=== PATIENT | female | born 1960 | race Caucasian/White ===

== ENCOUNTER → 2020-04-09 11:56 | Outpatient (REF) | payer MEDICAID, SELFPAY | LOC: HO.SL 11:56 | PROVIDERS: Visit Provider Family Medicine | DX: G47.33 Obstructive sleep apnea (adult) (pediatric) (principal) | CPT/HCPCS: 95806 ==

== ENCOUNTER 2020-10-23 10:13 | Outpatient (REF) | payer MEDICAID, SELFPAY ==
[2020-10-23 10:27] LABS: COVID-19 Test Positive (Negative)
== END 2020-10-23 10:14 | disposition home or self-care (01) ==
LOC: HO.LAB 10:13
PROVIDERS: Visit Provider Internal Medicine
DX: Z20.822 Contact with and (suspected) exposure to COVID-19 (principal)
CPT/HCPCS: 36415; 87635; C9803

== ENCOUNTER 2021-06-23 15:45 | Emergency (ER) | payer MEDICAID, SELFPAY ==
--- NOTE | ~2021-06-23 | XR_ITS ---
EXAMINATION: CHEST 2 VIEWS CLINICAL INFORMATION: pt c sob and sore throat . COMPARISON: 12/18/2010. TECHNIQUE: PA and lateral views of the chest obtained. FINDINGS: The lungs are well expanded. Minimal increased basilar markings more likely due to atelectasis or scarring similar to the prior 2010 study. No superimposed focal infiltrate, effusion, edema, or pneumothorax. Cardiac and mediastinal silhouettes are within normal limits for size. Dual-lead pacemaker seen with lead tips overlying the expected right atrium and right ventricle. No acute bony abnormality seen XR/XR chest 2V IMPRESSION: Dual-lead pacemaker. Basilar markings more likely due to atelectasis.
[2021-06-23 17:04] VITALS: BP 137/77; PULSE 95; RESP 22; TEMP 36.9; O2SAT 95; BMI 37.2
--- NOTE | 2021-06-23 17:07 | ECG_ITS ---
Test Reason : Sore throat/shortness of breath/chest pain Blood Pressure : / mmHG Vent. Rate : 086 BPM Atrial Rate : 086 BPM P-R Int : 160 ms QRS Dur : 078 ms QT Int : 418 ms P-R-T Axes : 066 054 051 degrees QTc Int : 500 ms Artifact in tracing Normal sinus rhythm Right atrial enlargement Minimal voltage criteria for LVH, may be normal variant ( Sokolow-Allen ) Nonspecific ST abnormality Prolonged QT Abnormal ECG When compared with ECG of 29-AUG-2015 12:26, No significant change was found Referred By: Thais Terry Electronically Signed By:KRISTA ROCK
--- NOTE | 2021-06-23 17:07 | ED_ITS ---
HPI - URI/Sore Throat General Chief Complaint: General Medical Stated Complaint: sob,sore throat Time Seen by Provider: 06/23/21 17:04 Related Data Previous Rx's Medication Instructions Recorded albuterol sulfate 90 mcg/actuation 2 puff INHALATION Q6H PRN #8.5 g 06/23/21 aerosol inhaler prednisone 20 mg tablet 40 mg PO DAILY #10 tab 06/23/21 Allergies Allergy/AdvReac Type Severity Reaction Status Date / Time No Known Allergies Allergy Unverified 03/21/20 16:56 [No Known Allergies*] [facility] Past Medical History Medical History (Updated 06/24/21 @ 00:02 by Background Daemon) Anxiety Dementia HTN (hypertension) Pacemaker Social History Social History Alcohol intake: never Patient Tobacco Use Status: Never used Tobacco Use of substances other than those prescribed or required for medical reasons: No Advance Directives: No Advance Directives Information Provided: No Patient : No Physical Exam Vital Signs: Vital Signs: Last Vital Signs Temp 98.5 F 06/23/21 17:04 Pulse 97 06/23/21 21:00 Resp 20 06/23/21 21:00 BP 137/77 06/23/21 17:04 Pulse Ox 94 06/23/21 19:22 BMI result Body Mass Index 37.2 Course Course Course Narrative: 17pm - 61-year-old female [place]-speaking female presenting to the ED with her daughter at bedside with complaints of a sore throat, shortness of breath and chest discomfort with associated cough that started this morning. Denies any other symptoms related to this. Reports that she is vaccinated to COVID. On exam patient is alert and oriented x3. Not in any acute distress. Vital signs are stable within normal limits. No focal neuro deficits are noted. Therefore at this time COVID swab and rapid strep was obtained. Labs and x-ray along with EKG ordered. Patient will go back to the waiting room for further evaluation treatment in the main ED. MDM - URI/Sore Throat Lab Data Result diagrams: 06/23/21 19:31 06/23/21 19:31 Labs: Lab Results 06/23/21 06/23/21 06/23/21 Range/Units 17:07 17:07 19:31 WBC 12.6 H (4.8-10.8) X10*3/uL RBC 4.74 (4.20-5.50) X10*6/uL Hgb 13.5 (12.0-16.0) g/dl Hct 39.8 (37.0-47.0) % MCV 84.0 (80.0-98.0) fL MCH 28.5 (27.0-33.0) pg MCHC 33.9 (31.0-35.0) g/dl RDW 12.2 (11.0-16.0) % Plt Count 259 (160-400) X10*3/uL MPV 10.5 (9.4-12.3) fL Immature Gran % (Auto) 0.3 (0.0-0.4) % Neut % (Auto) 82.4 H (45-73) % Lymph % (Auto) 9.7 L (20-40) % [place] % (Auto) 5.8 (2-11) % Eos % (Auto) 1.6 (0-4) % Baso % (Auto) 0.2 (0-2) % Lymph # (Auto) 1.2 (1.2-4.9) X10*3/uL [place] # (Auto) 0.7 (0.1-1.2) X10*3/uL Eos # (Auto) 0.2 (0.0-0.4) X10*3/uL Baso # (Auto) 0.0 (0.0-0.2) X10*3/uL Abs Immat Gran (auto) 0.04 H (0.00-0.03) X10*3/uL Absolute Neuts (auto) 10.4 H (2.0-8.3) x10*3/uL Absolute Nucleated RBC 0.000 (0.0-0.012) X10*3/uL Nucleated RBC % (auto) 0.0 (0.0-0.2) /100WBC PT (9.9-13.0) SEC INR (0.9-1.1) Sodium (135-145) mmol/L Potassium (3.3-5.1) mmol/L Chloride (96-108) mmol/L Carbon Dioxide (22-29) mmol/L Anion Gap (12-20) BUN (9-16) mg/dL Creatinine (0.5-1.4) mg/dL Estim Creat Clear Calc Estimated GFR Random Glucose (60-115) mg/dL Calcium (8.4-10.2) mg/dL Magnesium (1.6-2.6) mg/dL Total Bilirubin (0.0-1.0) mg/dL AST (5-31) U/L ALT (0-31) U/L Alkaline Phosphatase (39-117) U/L Troponin I High Sens (<3.5-17.0) ng/L B-Natriuretic Peptide (<100) pg/mL Total Protein (6.5-8.0) g/dL Albumin (3.5-5.0) g/dL COVID-19 (SUNIL) Negative (Negative) COVID-19 Clin Com See Note S. pyogenes GrpA ENDY Negative (Negative) 06/23/21 06/23/21 06/23/21 Range/Units 19:31 19:31 19:31 WBC (4.8-10.8) X10*3/uL RBC (4.20-5.50) X10*6/uL Hgb (12.0-16.0) g/dl Hct (37.0-47.0) % MCV (80.0-98.0) fL MCH (27.0-33.0) pg MCHC (31.0-35.0) g/dl RDW (11.0-16.0) % Plt Count (160-400) X10*3/uL MPV (9.4-12.3) fL Immature Gran % (Auto) (0.0-0.4) % Neut % (Auto) (45-73) % Lymph % (Auto) (20-40) % [place] % (Auto) (2-11) % Eos % (Auto) (0-4) % Baso % (Auto) (0-2) % Lymph # (Auto) (1.2-4.9) X10*3/uL [place] # (Auto) (0.1-1.2) X10*3/uL Eos # (Auto) (0.0-0.4) X10*3/uL Baso # (Auto) (0.0-0.2) X10*3/uL Abs Immat Gran (auto) (0.00-0.03) X10*3/uL Absolute Neuts (auto) (2.0-8.3) x10*3/uL Absolute Nucleated RBC (0.0-0.012) X10*3/uL Nucleated RBC % (auto) (0.0-0.2) /100WBC PT 12.8 (9.9-13.0) SEC INR 1.1 (0.9-1.1) Sodium 140 (135-145) mmol/L Potassium 4.0 (3.3-5.1) mmol/L Chloride 103 (96-108) mmol/L Carbon Dioxide 29 (22-29) mmol/L Anion Gap 12 (12-20) BUN 9 (9-16) mg/dL Creatinine 0.93 (0.5-1.4) mg/dL Estim Creat Clear Calc 67.9 Estimated GFR > 60 Random Glucose 141 H (60-115) mg/dL Calcium 9.6 (8.4-10.2) mg/dL Magnesium 1.8 (1.6-2.6) mg/dL Total Bilirubin 0.5 (0.0-1.0) mg/dL AST 17 (5-31) U/L ALT 26 (0-31) U/L Alkaline Phosphatase 120 H (39-117) U/L Troponin I High Sens 4.6 (<3.5-17.0) ng/L B-Natriuretic Peptide 28 (<100) pg/mL Total Protein 7.6 (6.5-8.0) g/dL Albumin 4.4 (3.5-5.0) g/dL COVID-19 (SUNIL) (Negative) COVID-19 Clin Com S. pyogenes GrpA ENDY (Negative) Discharge Plan Discharge Clinical Impression: Chest pain, Acute upper respiratory infection Patient Disposition: Home, Self-Care Instructions: Upper Respiratory Infection (ED), Viral Syndrome (ED), Chest Wall Pain (ED) Additional Instructions: Return if worse. Prednisone for inflammation. Prescriptions: New prednisone 20 mg tablet 40 mg PO DAILY Qty: 10 RF: 0 albuterol sulfate 90 mcg/actuation HFA aerosol inhaler 2 puff inhalation Q6H PRN (Reason: shortness of breath or wheezing) Qty: 8.5 RF: 0 Interventions: ED Discharge Assessment Last Done: 06/23/21 21:42 Discharge Date/Time: 06/23/21 21:42
[2021-06-23 17:30] LABS: Strep A Nucleic Acid Negative (Negative)
[2021-06-23 17:32] LABS: COVID-19 Test Negative (Negative)
[2021-06-23 19:22] VITALS: PULSE 97; O2SAT 94
--- NOTE | 2021-06-23 19:28 | ED_ITS ---
HPI - General Adult General Chief complaint: General Medical Stated complaint: sob,sore throat Time Seen by Provider: 06/23/21 17:04 Source: patient and family History of Present Illness HPI narrative: Patient with 2 complaints. 1. Chest pain which started earlier today when she woke up. She was lying down when it happened. It is a an anterior chest pressure that is worse with inspiration and coughing. She has been coughing for the last several days and bringing up green phlegm. No history of pneumonias in the past. No history of heart attack but she does have a dual lead pacemaker placed multiple years ago prior to this. She denies recent cardiac testing such as stress test. She has never have a catheterization. She denies ever having chest pain like this before. She feels short of breath with chest pain. She currently rates it a 9/10 2. Sore throat for the past 2 days. Worse with coughing and swallowing. Related Data Previous Rx's Medication Instructions Recorded albuterol sulfate 90 mcg/actuation 2 puff INHALATION Q6H PRN #8.5 g 06/23/21 aerosol inhaler prednisone 20 mg tablet 40 mg PO DAILY #10 tab 06/23/21 Allergies Allergy/AdvReac Type Severity Reaction Status Date / Time No Known Allergies Allergy Unverified 03/21/20 16:56 [No Known Allergies*] Review of Systems Constitutional: Constitutional: Denies body ache(s), Denies fatigue, Denies fever(s) and Denies headache(s) ENT: Denies headache(s) Cardiovascular: Comments: Chest pain as described Respiratory: Comments: Dyspnea and cough with phlegm is described Gastrointestinal: Comments: No nausea vomiting diarrhea or abdominal pain Integumentary/Breasts: Comments: No rash Neurologic: Denies headache(s) Psychiatric: Comments: Anxiety Endocrine: Endocrine: Denies fatigue PMFSH Past Medical History Medical History (Updated 06/23/21 @ 21:16 by Royce Tejeda MD) Anxiety Dementia HTN (hypertension) Pacemaker Social History Social History Alcohol intake: never Patient Tobacco Use Status: Never used Tobacco Use of substances other than those prescribed or required for medical reasons: No Advance Directives: No Advance Directives Information Provided: No Patient : No Physical Exam Vital Signs: Vital Signs: Last Vital Signs Temp 98.5 F 06/23/21 17:04 Pulse 97 06/23/21 21:00 Resp 20 12/20/21 21:00 BP 137/77 06/23/21 17:04 Pulse Ox 94 06/23/21 19:22 BMI result Body Mass Index 37.2 Const: Other: Awake and alert. Appears anxious HENMT: Other: Throat without erythema, exudate, or swelling Chest: Other: Chest wall nontender to palpation Resp: Other: Diminished but clear and equal bilaterally Cardio: Other: Regular rate and rhythm without murmurs rubs or gallops GI: Other: Soft nontender nondistended. Normal bowel sounds Skin: Other: No rash. Warm pink and dry without diaphoresis Neuro: Other: Nonfocal Course Course Course Narrative: Chest pain Myocardial infarction Acute coronary syndrome Musculoskeletal pain Pneumonia Bronchitis Sore throat Pharyngitis Clinically does not appear to be strep throat. Await EKG 7:50 p.m.. Patient appeared to have approximately a 12nd run of wide complex tachycardia on the monitor. But also coincided with a period of tremulousness. I do not think this represents ventricular tachycardia. 8:11 p.m.. EKG shows normal sinus rhythm without ischemic changes. Lab work including troponin is negative. Given the length and duration of chest pain, it is unlikely this represents acute coronary syndrome or ischemic pathology. It is worse with inspiration and coughing. Chest x-ray shows no obvious infiltrates. Repeat exam confirms diminished breath sounds bilaterally. Will treat with albuterol and Solu-Medrol and re-evaluate. 9:15 p.m.. Patient is feeling better at this time. Stable for discharge home Medical Decision Making Lab Data Result diagrams: 06/23/21 19:31 06/23/21 19:31 Labs: Lab Results 06/23/21 06/23/21 06/23/21 Range/Units 17:07 17:07 19:31 WBC 12.6 H (4.8-10.8) X10*3/uL RBC 4.74 (4.20-5.50) X10*6/uL Hgb 13.5 (12.0-16.0) g/dl Hct 39.8 (37.0-47.0) % MCV 84.0 (80.0-98.0) fL MCH 28.5 (27.0-33.0) pg MCHC 33.9 (31.0-35.0) g/dl RDW 12.2 (11.0-16.0) % Plt Count 259 (160-400) X10*3/uL MPV 10.5 (9.4-12.3) fL Immature Gran % (Auto) 0.3 (0.0-0.4) % Neut % (Auto) 82.4 H (45-73) % Lymph % (Auto) 9.7 L (20-40) % [place] % (Auto) 5.8 (2-11) % Eos % (Auto) 1.6 (0-4) % Baso % (Auto) 0.2 (0-2) % Lymph # (Auto) 1.2 (1.2-4.9) X10*3/uL [place] # (Auto) 0.7 (0.1-1.2) X10*3/uL Eos # (Auto) 0.2 (0.0-0.4) X10*3/uL Baso # (Auto) 0.0 (0.0-0.2) X10*3/uL Abs Immat Gran (auto) 0.04 H (0.00-0.03) X10*3/uL Absolute Neuts (auto) 10.4 H (2.0-8.3) x10*3/uL Absolute Nucleated RBC 0.000 (0.0-0.012) X10*3/uL Nucleated RBC % (auto) 0.0 (0.0-0.2) /100WBC PT (9.9-13.0) SEC INR (0.9-1.1) Sodium (135-145) mmol/L Potassium (3.3-5.1) mmol/L Chloride (96-108) mmol/L Carbon Dioxide (22-29) mmol/L Anion Gap (12-20) BUN (9-16) mg/dL Creatinine (0.5-1.4) mg/dL Estim Creat Clear Calc Estimated GFR Random Glucose (60-115) mg/dL Calcium (8.4-10.2) mg/dL Magnesium (1.6-2.6) mg/dL Total Bilirubin (0.0-1.0) mg/dL AST (5-31) U/L ALT (0-31) U/L Alkaline Phosphatase (39-117) U/L Troponin I High Sens (<3.5-17.0) ng/L B-Natriuretic Peptide (<100) pg/mL Total Protein (6.5-8.0) g/dL Albumin (3.5-5.0) g/dL COVID-19 (SUNIL) Negative (Negative) COVID-19 Clin Com See Note S. pyogenes GrpA ENDY Negative (Negative) 06/23/21 06/23/21 06/23/21 Range/Units 19:31 19:31 19:31 WBC (4.8-10.8) X10*3/uL RBC (4.20-5.50) X10*6/uL Hgb (12.0-16.0) g/dl Hct (37.0-47.0) % MCV (80.0-98.0) fL MCH (27.0-33.0) pg MCHC (31.0-35.0) g/dl RDW (11.0-16.0) % Plt Count (160-400) X10*3/uL MPV (9.4-12.3) fL Immature Gran % (Auto) (0.0-0.4) % Neut % (Auto) (45-73) % Lymph % (Auto) (20-40) % [place] % (Auto) (2-11) % Eos % (Auto) (0-4) % Baso % (Auto) (0-2) % Lymph # (Auto) (1.2-4.9) X10*3/uL [place] # (Auto) (0.1-1.2) X10*3/uL Eos # (Auto) (0.0-0.4) X10*3/uL Baso # (Auto) (0.0-0.2) X10*3/uL Abs Immat Gran (auto) (0.00-0.03) X10*3/uL Absolute Neuts (auto) (2.0-8.3) x10*3/uL Absolute Nucleated RBC (0.0-0.012) X10*3/uL Nucleated RBC % (auto) (0.0-0.2) /100WBC PT 12.8 (9.9-13.0) SEC INR 1.1 (0.9-1.1) Sodium 140 (135-145) mmol/L Potassium 4.0 (3.3-5.1) mmol/L Chloride 103 (96-108) mmol/L Carbon Dioxide 29 (22-29) mmol/L Anion Gap 12 (12-20) BUN 9 (9-16) mg/dL Creatinine 0.93 (0.5-1.4) mg/dL Estim Creat Clear Calc 67.9 Estimated GFR > 60 Random Glucose 141 H (60-115) mg/dL Calcium 9.6 (8.4-10.2) mg/dL Magnesium 1.8 (1.6-2.6) mg/dL Total Bilirubin 0.5 (0.0-1.0) mg/dL AST 17 (5-31) U/L ALT 26 (0-31) U/L Alkaline Phosphatase 120 H (39-117) U/L Troponin I High Sens 4.6 (<3.5-17.0) ng/L B-Natriuretic Peptide 28 (<100) pg/mL Total Protein 7.6 (6.5-8.0) g/dL Albumin 4.4 (3.5-5.0) g/dL COVID-19 (SUNIL) (Negative) COVID-19 Clin Com S. pyogenes GrpA ENDY (Negative) Discharge Plan Discharge Clinical Impression: Acute upper respiratory infection Chest pain Qualifiers: Chest pain type: unspecified Qualified Code(s): R07.9 - Chest pain, unspecified Patient Disposition: Home, Self-Care Instructions: Upper Respiratory Infection (ED), Viral Syndrome (ED), Chest Wall Pain (ED) Additional Instructions: Return if worse. Prednisone for inflammation. Prescriptions: New prednisone 20 mg tablet 40 mg PO DAILY Qty: 10 RF: 0 albuterol sulfate 90 mcg/actuation HFA aerosol inhaler 2 puff inhalation Q6H PRN (Reason: shortness of breath or wheezing) Qty: 8.5 RF: 0
[2021-06-23 19:35] LABS: MANUAL DIFF FLAG NO
[2021-06-23 19:36] LABS: Basophils Percent Auto 0.2 % (0-2); Eosinophils Absolute Auto 0.2 X10*3/uL (0.0-0.4); Eosinophils Percent Auto 1.6 % (0-4); Hematocrit 39.8 % (37.0-47.0); Hemoglobin 13.5 g/dl (12.0-16.0); Imm Gran Abs Auto 0.04 X10*3/uL (0.00-0.03); Imm Gran Pct Auto 0.3 % (0.0-0.4); Lymphocytes Absolute Auto 1.2 X10*3/uL (1.2-4.9); Lymphocytes Percent Auto 9.7 % (20-40); Mean Corpuscular HGB Conc 33.9 g/dl (31.0-35.0); Mean Corpuscular Hemoglobin 28.5 pg (27.0-33.0); Mean Platelet Volume 10.5 fL (9.4-12.3); Monocytes Absolute Auto 0.7 X10*3/uL (0.1-1.2); Monocytes Percent Auto 5.8 % (2-11); Neutrophils Absolute Auto 10.4 x10*3/uL (2.0-8.3); Neutrophils Percent Auto 82.4 % (45-73); Platelet Count 259 X10*3/uL (160-400); Red Blood Count 4.74 X10*6/uL (4.20-5.50); Red Cell Distribution Width 12.2 % (11.0-16.0); White Blood Count 12.6 X10*3/uL (4.8-10.8)
[2021-06-23 19:42] LABS: INTERNATIONAL NORM RATIO 1.1 (0.9-1.1); Prothrombin Time 12.8 SEC (9.9-13.0)
[2021-06-23 19:54] LABS: Alanine Aminotransferase 26 U/L (0-31); Albumin Level 4.4 g/dL (3.5-5.0); Alkaline Phosphatase 120 U/L (39-117); Anion Gap 12 (12-20); Aspartate Amino Transferase 17 U/L (5-31); Bilirubin Total 0.5 mg/dL (0.0-1.0); Blood Urea Nitrogen 9 mg/dL (9-16); Calcium 9.6 mg/dL (8.4-10.2); Carbon Dioxide 29 mmol/L (22-29); Chloride 103 mmol/L (96-108); Creatinine Clr Calc Pharmacy 67.9; Estimated Glomerular Filt Rate > 60; Glucose Random 141 mg/dL (60-115); Magnesium 1.8 mg/dL (1.6-2.6); Sodium 140 mmol/L (135-145); Total Protein 7.6 g/dL (6.5-8.0)
[2021-06-23 19:58] LABS: B Type Natriuretic Peptide 28 pg/mL (<100); Troponin-I High Sensitivity 4.6 ng/L (<3.5-17.0)
[2021-06-23] MEDS: LORazepam 2 MG/ML VIAL 0.5 MG IVPUSH (20:06)
[2021-06-23] MEDS: Albuterol Sulfate (0.083%) 2.5 MG/3 ML VIAL.NEB INHALE (20:58)
[2021-06-23 21:00] VITALS: PULSE 97; RESP 20; O2SAT 93
[2021-06-23] MEDS: methylPREDNISolone Sod Succ 125 MG/2 ML VIAL IVPUSH (21:08)
== END 2021-06-23 21:42 | disposition home or self-care (01) ==
PROVIDERS: Physician Assistant Medical; Emergency Provider Emergency Medicine; PCP Family Medicine
DX: J06.9 Acute upper respiratory infection, unspecified (principal); R07.9 Chest pain, unspecified; Z20.822 Contact with and (suspected) exposure to COVID-19; R06.02 Shortness of breath; I10 Essential (primary) hypertension; F41.9 Anxiety disorder, unspecified; Z95.0 Presence of cardiac pacemaker
CPT/HCPCS: 36415; 71046; 80053; 83735; 83880; 84484; 85025; 85610; 87635; 87651; 93005; 94640; 96374; 96375; 99284; J2060; J2930

== ENCOUNTER → 2022-06-08 21:21 | Outpatient (REF) | payer MEDICAID, SELFPAY | LOC: HO.SL 21:21 | PROVIDERS: Visit Provider Family Medicine | DX: G47.33 Obstructive sleep apnea (adult) (pediatric) (principal) | CPT/HCPCS: 95810 ==

== ENCOUNTER 2022-09-30 09:31 | Outpatient (REF) | payer MEDICAID, SELFPAY ==
--- NOTE | ~2022-09-30 | MM_ITS ---
EXAMINATION: MM SCREENING DIGITAL BREAST TOMOSYNTHESIS, BILATERAL CLINICAL INFORMATION: Screening. Asymptomatic. The lifetime risk of breast cancer based on the Tyrer-Cuzick Model is 4%. COMPARISON: Mammography: 08/18/2018, 06/08/2017, 06/01/2016 TECHNIQUE: Digital breast tomosynthesis is performed in both the craniocaudal and mediolateral oblique views along with computer-aided detection (CAD). Synthesized 2D images are generated from the tomosynthesis. FINDINGS: There are scattered areas of fibroglandular density (ACR BI-RADS breast composition Category b). There are no significant masses, abnormal calcifications, or other abnormalities. Parenchymal pattern is similar to prior studies. There is no developing density or architectural abnormality. Pacemaker generator is again noted partially overlying the upper left axilla on MLO view. The axilla and skin contours are otherwise unremarkable. No significant changes. MM/MM tomosynthesis screening BI IMPRESSION: No mammographic evidence of malignancy. ASSESSMENT: BI-RADS 1: Negative RECOMMENDATION: Routine annual mammography screening. This patient's information was entered into a reminder system with a target due date for their next mammogram.
== END 2022-09-30 09:32 | disposition home or self-care (01) ==
LOC: HO.MAMMO 09:31
PROVIDERS: Visit Provider Family Medicine
DX: Z12.31 Encounter for screening mammogram for malignant neoplasm of breast (principal)
CPT/HCPCS: 77063; 77067

== ENCOUNTER 2023-10-06 09:09 | Outpatient (REF) | payer MEDICARE, SELFPAY ==
--- NOTE | ~2023-10-06 | MM_ITS ---
EXAMINATION: MM SCREENING DIGITAL BREAST TOMOSYNTHESIS, BILATERAL CLINICAL INFORMATION: Screening. Asymptomatic. COMPARISON: Mammography: This study is compared with prior exams dating back to 2017. TECHNIQUE: Digital breast tomosynthesis is performed in both the craniocaudal and mediolateral oblique views along with computer-aided detection (CAD). Synthesized 2D images are generated from the tomosynthesis. FINDINGS: There are scattered areas of fibroglandular density (ACR BI-RADS breast composition Category b). There are no significant masses, abnormal calcifications, or other abnormalities. There is a pacemaker battery in the superior aspect of the left breast. MM/MM tomosynthesis screening BI IMPRESSION: No mammographic evidence of malignancy. ASSESSMENT: BI-RADS BI-RADS 1 - Negative RECOMMENDATION: Routine annual mammography screening. 1 year F/U This examination should not preclude the clinical evaluation of a suspicious palpable abnormality. This patient's information was entered into a reminder system with a target due date for their next mammogram.
== END 2023-10-06 09:10 | disposition home or self-care (01) ==
LOC: HO.MAMMO 09:09
PROVIDERS: PCP Family Medicine; Visit Provider Family Medicine
DX: Z12.31 Encounter for screening mammogram for malignant neoplasm of breast (principal)
CPT/HCPCS: 77063; 77067

== ENCOUNTER → 2023-10-06 09:30 | Outpatient (BNV) | payer MEDICARE, SELFPAY | PROVIDERS: PCP Family Medicine; Visit Provider Radiology Diagnostic Radiology | DX: Z12.31 Encounter for screening mammogram for malignant neoplasm of breast (principal) | CPT/HCPCS: 77063; 77067 ==

== ENCOUNTER 2023-10-26 10:03 | Outpatient (REF) | payer MEDICARE, SELFPAY ==
[2023-10-26 11:53] LABS: Prothrombin Time 11.7 SEC (11.1-13.3)
[2023-10-26 11:56] LABS: Partial Thromboplastin Time 30.9 SEC (26.0-36.8)
[2023-10-26 12:07] LABS: Estimated Average Glucose 131 mg/dL; Hemoglobin A1c % 6.2 % (<6.0)
[2023-10-26 12:27] LABS: Alanine Aminotransferase 21 U/L (0-31); Alkaline Phosphatase 95 U/L (39-117); Anion Gap 10 (12-20); Aspartate Amino Transferase 16 U/L (5-31); Bilirubin Direct 0.1 mg/dL (0.0-0.5); Bilirubin Total 0.3 mg/dL (0.0-1.0); Blood Urea Nitrogen 12 mg/dL (9-16); Calcium 9.1 mg/dL (8.4-10.2); Carbon Dioxide 29 mmol/L (22-29); Chloride 107 mmol/L (96-108); Cholesterol 136 mg/dL (<200); Estimated Glomerular Filt Rate 58; Glucose Random 120 mg/dL (60-115); HDL Cholesterol 36 mg/dL (>40); LDL Cholesterol Calculated 54 mg/dL (<100); Potassium 3.8 mmol/L (3.3-5.1); Sodium 142 mmol/L (135-145); Total Protein 6.9 g/dL (6.5-8.0); Triglycerides 233 mg/dL (<150)
[2023-10-26 12:48] LABS: Free T4 (Free Thyroxine) 0.79 ng/dL (0.71-1.85); Thyroid Stimulating Hormone 1.37 uIU/mL (0.32-4.0); Vitamin D 25-OH Total 42.8 ng/mL (>30)
== END 2023-10-26 10:04 | disposition home or self-care (01) ==
LOC: HO.HHCL 10:03
PROVIDERS: Visit Provider Family Medicine
DX: E11.22 Type 2 diabetes mellitus with diabetic chronic kidney disease (principal); N18.30 Chronic kidney disease, stage 3 unspecified; R23.3 Spontaneous ecchymoses; R10.13 Epigastric pain
CPT/HCPCS: 80048; 80061; 80076; 82306; 83036; 84439; 84443; 85610; 85730

== ENCOUNTER 2023-11-09 08:38 | Outpatient (REF) | payer MEDICARE, SELFPAY ==
--- NOTE | ~2023-11-09 | MM_ITS ---
EXAMINATION: BONE DENSITOMETRY CLINICAL INDICATION: Menopause. COMPARISON: This is the patient's baseline examination. TECHNIQUE: Using a [employer] Cloud Camera DXA System (software version: 13.1) manufactured by [employer], dual-energy x-ray absorptiometry was performed of the lumbar spine and left hip. The images are of good technical quality. Summary results are attached. FINDINGS: LEFT FEMUR, NECK: BMD 1.093 g/cm2, Z-score 1.2, T-score 0.4, normal. LEFT FEMUR, TOTAL: BMD 1.171 g/cm2, Z-score 1.8, T-score 1.3, normal. AP SPINE L1-L4: BMD 1.364 g/cm2, Z-score 2.1, T-score 1.5, normal. IDENTIFIED RISK FACTORS: Early menopause, dementia, glucocorticoids (chronic), secondary osteoporosis. HISTORY OF FRACTURE: None listed. MEDICATIONS: None listed. MM/XR DEXA axial skeleton IMPRESSION: 1. DIAGNOSIS: Normal bone density based on the lowest T-score value of 0.4 in the femoral neck applying World Health Organization criteria. 2. 10-YEAR FRACTURE RISK PREDICTION, FRAX: According to the guidelines, FRAX calculation should only be performed on patients in the osteopenia bone density category. Therefore, FRAX was not performed on this patient. 3. Treatment Recommendations: NOF guidelines recommend consideration for treatment in postmenopausal women and men age 50 and older presenting with the following: -A hip or vertebral (clinical or morphometric) fracture. -T-score less than or equal to -2.5 at the femoral neck or spine after appropriate evaluation to exclude secondary causes. -Low bone mass at the hip or spine and a 10-year fracture probability by FRAX of greater than or equal to 3% for hip fracture or greater than or equal to 20% for major osteoporotic fracture based on the [place] adapted WHO algorithm. 4. Other Recommendations: All treatment decisions require clinical judgment and consideration of individual patient factors, including patient preferences, comorbidities, previous drug use, risk factors not captured in the FRAX model (e.g. frailty, falls, vitamin D deficiency, increased bone turnover, interval significant decline in bone density) and possible under or overestimation of fracture risk by FRAX. FUTURE SCAN RECOMMENDATION: People with diagnosed cases of osteoporosis or at high risk for fracture should have regular bone mineral density tests. For patients eligible for Medicare, routine testing is allowed once every 2 years. The testing frequency can be increased to one year for patients who have rapidly progressing disease, those who are receiving or discontinuing medical therapy to restore bone mass, or have additional risk factors.
== END 2023-11-09 08:39 | disposition home or self-care (01) ==
LOC: HO.MAMMO 08:38
PROVIDERS: PCP Family Medicine; Visit Provider Family Medicine
DX: Z13.820 Encounter for screening for osteoporosis (principal); Z78.0 Asymptomatic menopausal state; Z91.89 Other specified personal risk factors, not elsewhere classified
CPT/HCPCS: 77080

== ENCOUNTER 2024-06-07 09:05 | Inpatient (IN) | payer MEDICARE, SELFPAY ==
[2024-06-07] VITALS (8 sets, daily range): BP systolic 122–186; BP diastolic 67–86; PULSE 65–89; RESP 16–28; TEMP 36.6–37.6; O2SAT 94–97; BMI 31.0
--- NOTE | ~2024-06-07 | CT_ITS ---
EXAMINATION: CT CHEST WITHOUT CONTRAST CLINICAL INFORMATION: Pericardial effusion versus cardiomegaly. Evaluate for pleural effusion COMPARISON: Radiograph June 07, 2024 TECHNIQUE: Multidetector volumetric CT imaging of the chest was done. Axial MIP volume rendering provided. Sagittal and coronal reformatted images were obtained. This CT examination was performed using dose optimization techniques as appropriate, variously including the following: *Automated exposure control *Adjustment of mA and/or kV according to patient size (this includes techniques or standardized protocols for targeted exams where dose is matched to indication/reason for exam; i.e. extremities or head) *Use of iterative reconstruction technique DLP: 510 mGy-cm FINDINGS: LUNGS: Motion obscures fine detail in the lungs. Centrilobular emphysema. Ill-defined groundglass opacities along the major fissure in the right upper lobe. MEDIASTINUM: The heart is normal in size. Pacemaker leads in place. Mild coronary artery calcification. PLEURA: There is no pleural effusion. No pleural mass or thickening. AXILLA: No lymphadenopathy. UPPER ABDOMEN: Unremarkable. OSSEOUS STRUCTURES: Unremarkable. CT/CT chest wo IV con IMPRESSION: 1. No pleural effusion. 2. Ill-defined groundglass opacities along the major fissure in the right upper lobe. This may represent an infectious or inflammatory process. 3. Centrilobular emphysema. Fleischner guidelines were followed. Electronically signed by: Jose Carrion MD 06/07/2024 04:06 PM [facility] Workstation: [id number]
--- NOTE | ~2024-06-07 | XR_ITS ---
EXAMINATION: XR CHEST CLINICAL INFORMATION: ams COMPARISON: X-ray dated June 23, 2021 TECHNIQUE: Frontal view of the chest was obtained. FINDINGS: Mild prominence of the interstitial markings. Haziness in the left lower hemithorax. No pneumothorax. Low lung volume. Heart silhouette appears prominent. 2. Intact electrode leads in the right heart chambers from the left-sided pacemaker. Multilevel thoracic spondylosis. XR/XR chest 1V IMPRESSION: Cardiomegaly versus pericardial effusion and mild interstitial lung edema. Questionable left-sided pleural effusion. Electronically signed by: Harry Grubbs MD 06/07/2024 12:49 PM [facility]
--- NOTE | ~2024-06-07 | CT_ITS ---
EXAMINATION: CT HEAD WITHOUT CONTRAST CLINICAL INFORMATION: ams COMPARISON: CT dated December 18, 2010 TECHNIQUE: Contiguous axial imaging was performed from the skull base to vertex without intravenous administration of contrast. This CT examination was performed using dose optimization techniques as appropriate, variously including the following: *Automated exposure control *Adjustment of mA and/or kV according to patient size (this includes techniques or standardized protocols for targeted exams where dose is matched to indication/reason for exam; i.e. extremities or head) *Use of iterative reconstruction technique DLP: 1031 mGy-cm FINDINGS: Limited by patient's motion artifact. Bony calvarium is intact. Skull base is intact. Degenerative changes in the right temporomandibular joint. No acute intracranial hemorrhage, mass effect, midline shift, hydrocephalus or herniation. Light-white matter differentiation is normal. Posterior cranial fossa contents demonstrated no acute intracranial hemorrhage or mass effect. Bilateral mild patchy deep periventricular white matter hypodensity in the supratentorial compartment. Sellar/suprasellar region demonstrated no gross hemorrhage or mass. Craniocervical junction is intact. Tympanic cavities and mastoid cells are aerated. Mucosal thickening and secretions occupying the entire right sphenoid sinus. Mucosal thickening left maxillary sinus. CT/CT head/brain wo IV con IMPRESSION: No acute fracture, bony calvarium. No acute intracranial hemorrhage. If patient's symptoms persist recommend non-IV contrast MRI brain. Acute on chronic sphenoid sinus disease. Electronically signed by: Harry Grubbs MD 06/07/2024 01:08 PM [facility]
--- NOTE | 2024-06-07 09:16 | ECG_ITS ---
Test Reason : OD Blood Pressure : / mmHG Vent. Rate : 083 BPM Atrial Rate : 083 BPM P-R Int : 160 ms QRS Dur : 080 ms QT Int : 408 ms P-R-T Axes : 037 013 033 degrees QTc Int : 479 ms Normal sinus rhythm Minimal voltage criteria for LVH, may be normal variant ( R in aVL ) Nonspecific ST abnormality Abnormal ECG When compared with ECG of 23-JUN-2021 19:52, No significant change was found Referred By: Elisa Leblanc Electronically Signed By:Francisco Stein
--- NOTE | 2024-06-07 09:44 | ED.AMS ---
HPI - Altered Mental Status General Chief Complaint: Altered Mental Status Stated Complaint: CLONAZEPAM OD Time Seen by Provider: 06/07/24 09:10 Source: patient, EMS, RN notes reviewed and old records reviewed Mode of arrival: EMS History of Present Illness ED Provider: Elisa Leblanc PA-C HPI narrative: 64-year-old female with a past medical history of dementia, HTN, anxiety, presenting to the ED via EMS due to suspected Klonopin/Ambien overdose. History obtained from daughter who states she with patient all day yesterday and patient was increasingly depressed (talking about her & found in her wedding dress). Daughter admits she gives patient her medications daily, this morning patient was found in bed, lethargic with decreased responsiveness/sleeping with empty bottles of Klonopin /Ambien and 1 pill of Klonopin on her chest. No reported trauma. Daughter denies history of suicide attempts in the past. Related Data Previous Rx's ?Medication ?Instructions ?Recorded albuterol sulfate 90 mcg/actuation 2 puff inhalation Q6H PRN 06/23/21 aerosol inhaler shortness of breath or wheezing #8.5 grams prednisone 20 mg tablet 40 mg (2 x 20 mg) PO DAILY #10 tabs 06/23/21 Allergies Allergy/AdvReac Type Severity Reaction Status Date / Time No Known Allergies Allergy Verified 06/07/24 09:32 [No Known Allergies*] Review of Systems Review of Systems: Yes all other systems are reviewed and are negative Constitutional: Constitutional: Reports as per [facility] Past Medical History Attestation statement: The following information was validated with the patient. Source: old records reviewed Medical History Pacemaker Dementia HTN (hypertension) Anxiety Social History Social History Alcohol intake: never Patient Tobacco Use Status: Never used Tobacco Advance Directives: No Physical Exam ED Vital Signs: Vital Signs - 24 hr 06/07/24 09:25 06/07/24 11:19 06/07/24 14:50 Temperature 99.7 F 97.9 F Pulse Rate 88 87 81 Respiratory Rate 18 18 17 Blood Pressure 186/86 H 158/80 H 164/80 H Pulse Oximetry 97 96 97 Oxygen Delivery Method Nasal Cannula Room Air Nasal Cannula Oxygen Flow Rate 2 2 BMI result Body Mass Index 31.0 Const Other: Lethargic, opens eyes to painful/verbal stimuli. Not following commands Limitations: altered mental status HENMT Head: Yes normal to inspection and Yes atraumatic Ears: hearing grossly normal bilaterally General nose exam: Normal external nose present Face and sinus: Yes normal facial exam Eyes General: appearance normal, both eyes and all related structures Pupils: Equal, round and reactive pupils present EOM: EOMs intact bilaterally Neck Neck: Yes normal visual inspection and Yes no meningeal signs Resp Effort & Inspection: normal respiratory effort and no respiratory distress Auscultation: clear to auscultation bilaterally Cardio Rate: regular rate Heart sounds: S1 normal heart sound present and S2 normal heart sound present GI Inspection: Yes normal to inspection Palpation (GI): Soft to palpation, nontender, no guarding and not rigid Skin Rashes: no rashes Wounds: no wounds Neuro General: tone normal and no meningeal signs Cranial nerves: Yes Equal, round and reactive pupils present Extrem General: Yes normal to inspection Course Course Course Narrative: -per [facility] review patient filled 30 tabs of Ambien 10mg on 05/19/24 & 30 tabs of Clonazepam 0.5mg on 05/19/24 - labs reassuring. Slight elevation in AST/ALT. Viral studies negative XR chest 1V IMPRESSION: Cardiomegaly versus pericardial effusion and mild interstitial lung edema. Questionable left-sided pleural effusion. > will obtain CT for better eval CT head/brain wo IV con IMPRESSION: No acute fracture, bony calvarium. No acute intracranial hemorrhage. If patient's symptoms persist recommend non-IV contrast MRI brain. Acute on chronic sphenoid sinus disease. 161--CT chest wo IV con IMPRESSION: 1. No pleural effusion. 2. Ill-defined groundglass opacities along the major fissure in the right upper lobe. This may represent an infectious or inflammatory process. 3. Centrilobular emphysema. Fleischner guidelines were followed. Physician observation initiated at 16:12 as patient needs more time for medications to wear off and CARE team eval. -171--ED care transferred to [facility] pending clinical improvement and CARE team eval Medications Administered Discontinued Medications Generic Name Dose Route Start Last Admin Trade Name Freq PRN Reason Stop Dose Admin Sodium Chloride 1,000 mls @ 999 mls/hr 06/07/24 10:15 06/07/24 13:00 Ns IV 06/07/24 11:15 Infused .Q1H1M PASCUAL Infusion Medical Decision Making Medical Decision Making MDM Narrative: 64-year-old female with a past medical history of dementia, HTN, anxiety, presenting to the ED via EMS due to suspected Klonopin/Ambien overdose. On exam satting 91% on RA, increased to 95% on 2 L NC, lethargic with decreased responsiveness, opens eyes to verbal/painful stimuli. Does not follow commands. Snoring. Concern for Ambien/Klonopin overdose vs encephalopathy and AMS. Rule out metabolic/ infectious etiologies. Rule out ICH. Lower suspicion for meningitis /encephalitis plan: EKG, labs, UA, tox screen, CXR, head CT, contact poison control, re-evaluate Please refer to course for remaining clinical decision making, interpretation of labs/imaging results, and discussions with consultants and/or family members. Differential Diagnosis Differential Diagnoses: The differential diagnosis associated with the presentation includes As above Admission/Observation Consideration of admission/observation: Escalation of care including admission/observation considered Consult Healthcare Provider Management of the patient was discussed with: Hospitalist, Segment Block Layer and Behavioral Health Provider Lab Data [facility] Lab Attestation statement: I reviewed the patient's lab results. 06/07/24 09:48 06/07/24 09:48 Labs: Lab Results 06/07/24 06/07/24 06/07/24 Range/Units 09:37 09:48 09:49 WBC 8.4 (4.8-10.8) X10*3/uL RBC 4.28 (4.20-5.50) X10*6/uL Hgb 12.5 (12.0-16.0) g/dl Hct 36.5 L (37.0-47.0) % MCV 85.3 (80.0-98.0) fL MCH 29.2 (27.0-33.0) pg MCHC 34.2 (31.0-35.0) g/dl RDW 12.7 (11.0-16.0) % Plt Count 239 (160-400) X10*3/uL MPV 10.4 (9.4-12.3) fL Immature Gran % (Auto) 0.2 (0.0-0.4) % Neut % (Auto) 77.4 H (45-73) % Lymph % (Auto) 15.2 L (20-40) % Atlantic % (Auto) 5.9 (2-11) % Eos % (Auto) 0.7 (0-4) % Baso % (Auto) 0.6 (0-2) % Lymph # (Auto) 1.3 (1.2-4.9) X10*3/uL Atlantic # (Auto) 0.5 (0.1-1.2) X10*3/uL Eos # (Auto) 0.1 (0.0-0.4) X10*3/uL Baso # (Auto) 0.1 (0.0-0.2) X10*3/uL Abs Immat Gran (auto) 0.02 (0.00-0.03) X10*3/uL Absolute Neuts (auto) 6.5 (2.0-8.3) x10*3/uL Absolute Nucleated RBC 0.000 (0.0-0.012) X10*3/uL Nucleated RBC % (auto) 0.0 (0.0-0.2) /100WBC PT 13.4 H (10.9-12.4) SEC INR 1.2 H (0.9-1.1) Sodium 149 H (135-145) mmol/L Potassium 4.2 (3.3-5.1) mmol/L Chloride 113 H (96-108) mmol/L Carbon Dioxide 28 (22-29) mmol/L Anion Gap 12 (12-20) BUN 15 (9-16) mg/dL Creatinine 0.85 (0.5-1.4) mg/dL Estim Creat Clear Calc 72.3 Estimated GFR > 60 POC Glucose 133 H (60-115) mg/dL Random Glucose 139 H (60-115) mg/dL Calcium 9.2 (8.4-10.2) mg/dL Magnesium 2.1 (1.6-2.6) mg/dL Total Bilirubin 0.3 (0.0-1.0) mg/dL Direct Bilirubin 0.1 (0.0-0.5) mg/dL AST 37 H (5-31) U/L ALT 45 H (0-31) U/L Alkaline Phosphatase 98 (39-117) U/L Ammonia 38 (13-55) umol/L Troponin I High Sens 3.5 (<3.5-17.0) ng/L Total Protein 7.3 (6.5-8.0) g/dL Albumin 4.1 (3.5-5.0) g/dL Lipase 16 (8-78) U/L Salicylates < 5.0 L (15-30) mg/dL Acetaminophen < 3 (<30) mcg/mL Ethyl Alcohol < 10 mg/dL Influenza Type A (PCR) NEGATIVE (Negative) Influenza Type B (PCR) NEGATIVE (Negative) RSV RNA Qual (PCR) NEGATIVE (Negative) SARS-CoV-2 RNA (RT-PCR) NEGATIVE (Negative) Independent Interpretation I performed an independent interpretation of an: EKG, Plain X-Ray and CT Scan Radiology Impression Discussion of test interpretation with radiology: I have reviewed the radiologist's reading. Independent Historian Clinical information obtained from an independent historian. History obtained from or confirmed by: EMS and Other ( daughter) External Record Review External record reviewed: Inpatient record, Office record, Outpatient record, Prior outpatient labs, Prior outpatient radiology, Primary care record and Outside ED record Tests considered The following testing was considered but not selected: As above Chronic Conditions Patient?s care impacted by: Hypertension and Other Social Determinants Patient?s care significantly limited by Social Determinants of Health including: Inadequate housing, Problems related to primary support group, Problems related to employment and Other Social Determinant of Health Critical Care Time Critical Care Time Critical Care Time: Yes Total Critical Care Time: 40 Attestation: I have personally provided critical care time exclusive of time spent on separately billable procedures. Time includes review of lab data, radiology results, discussion with consultants, and monitoring for potential decompensation. Intervention performed as documented. Discharge Plan Discharge Clinical Impression: Intentional overdose Patient Disposition: Still a Patient Prescriptions: No Action prednisone 20 mg tablet 40 mg PO DAILY Qty: 10 0RF albuterol sulfate 90 mcg/actuation HFA aerosol inhaler 2 puff inhalation Q6H PRN (Reason: shortness of breath or wheezing) Qty: 8.5 0RF Print Language: Tamazight
[2024-06-07 09:55] LABS: MANUAL DIFF FLAG NO
[2024-06-07 10:01] LABS: Basophils Absolute Auto 0.1 X10*3/uL (0.0-0.2); Basophils Percent Auto 0.6 % (0-2); Eosinophils Absolute Auto 0.1 X10*3/uL (0.0-0.4); Eosinophils Percent Auto 0.7 % (0-4); Hematocrit 36.5 % (37.0-47.0); Hemoglobin 12.5 g/dl (12.0-16.0); Imm Gran Abs Auto 0.02 X10*3/uL (0.00-0.03); Imm Gran Pct Auto 0.2 % (0.0-0.4); Lymphocytes Absolute Auto 1.3 X10*3/uL (1.2-4.9); Lymphocytes Percent Auto 15.2 % (20-40); Mean Corpuscular HGB Conc 34.2 g/dl (31.0-35.0); Mean Corpuscular Hemoglobin 29.2 pg (27.0-33.0); Mean Corpuscular Volume 85.3 fL (80.0-98.0); Mean Platelet Volume 10.4 fL (9.4-12.3); Monocytes Absolute Auto 0.5 X10*3/uL (0.1-1.2); Monocytes Percent Auto 5.9 % (2-11); Neutrophils Absolute Auto 6.5 x10*3/uL (2.0-8.3); Neutrophils Percent Auto 77.4 % (45-73); Platelet Count 239 X10*3/uL (160-400); Red Blood Count 4.28 X10*6/uL (4.20-5.50); Red Cell Distribution Width 12.7 % (11.0-16.0); White Blood Count 8.4 X10*3/uL (4.8-10.8)
[2024-06-07 10:02] LABS: Ammonia 38 umol/L (13-55)
[2024-06-07 10:12] LABS: Acetaminophen LAB < 3 mcg/mL (<30); Salicylate < 5.0 mg/dL (15-30)
[2024-06-07 10:13] LABS: Alanine Aminotransferase 45 U/L (0-31); Albumin Level 4.1 g/dL (3.5-5.0); Alkaline Phosphatase 98 U/L (39-117); Anion Gap 12 (12-20); Aspartate Amino Transferase 37 U/L (5-31); Bilirubin Direct 0.1 mg/dL (0.0-0.5); Bilirubin Total 0.3 mg/dL (0.0-1.0); Blood Urea Nitrogen 15 mg/dL (9-16); Calcium 9.2 mg/dL (8.4-10.2); Carbon Dioxide 28 mmol/L (22-29); Chloride 113 mmol/L (96-108); Creatinine Clr Calc Pharmacy 72.3; Estimated Glomerular Filt Rate > 60; Ethanol < 10 mg/dL; Glucose Random 139 mg/dL (60-115); Lipase 16 U/L (8-78); Magnesium 2.1 mg/dL (1.6-2.6); Potassium 4.2 mmol/L (3.3-5.1); Sodium 149 mmol/L (135-145); Total Protein 7.3 g/dL (6.5-8.0)
[2024-06-07 10:19] LABS: Troponin-I High Sensitivity 3.5 ng/L (<3.5-17.0)
[2024-06-07 10:22] LABS: INTERNATIONAL NORM RATIO 1.2 (0.9-1.1); Prothrombin Time 13.4 SEC (10.9-12.4)
[2024-06-07 11:14] LABS: Influenza A PCR NEGATIVE (Negative); Influenza B PCR NEGATIVE (Negative); Resp Syncy Virus RNA Qual PCR NEGATIVE (Negative); SARS COV2 PCR INHOUSE NEGATIVE (Negative)
[2024-06-07] MEDS: 0.9 % Sodium Chloride 1,000 ML 999 ML IV (11:18)
--- NOTE | 2024-06-07 11:33 | PC.NURSE ---
Arrived from home via ems after family reports decreased responsiveness and slow breathing. Family found patient in bed with 1 clonapin pill on her chest. Daughter reports patient seemed depressed yesterday. Daughter states that patients bottles of ambien and cloanpin were both empty and she believes they should have at least had a few tables left in them
[2024-06-07 14:05] LABS: Glucose, Whole Blood 133 mg/dL (60-115)
--- NOTE | 2024-06-07 14:46 | PC.NURSE ---
Update provided to poison control
--- NOTE | 2024-06-07 18:29 | PC.NURSE ---
Patient more alert , sitting up in bed talking with family. VSS
--- NOTE | 2024-06-07 18:56 | PC.NURSE ---
Patient denies SI, does not offer a reason for why she took the pills. Daughters at bedside , patient changed into [facility] attire
[2024-06-07 20:41] LABS: Appearance Urine Clear; Color Urine Yellow; Glucose Urine UA Negative (Negative); Leukocyte Esterase Urine Negative (Negative); Nitrite Urine Negative (Negative); PH 6.5 (5.0-9.0); Specific Gravity - Urine 1.015 (1.005-1.025); Urine Blood Negative (Negative); Urine Ketones Negative (Negative); Urine Protein Negative (Neg-Trace)
[2024-06-07 20:50] LABS: Amphetamine Screen Urine Not Detected (Not Detect); Barbiturates, Urine Not Detected (Not Detect); Benzodiazepines Screen Urine Not Detected (Not Detect); Buprenorphine Scr Not Detected (Not Detect); Cannabinoid Screen Urine Not Detected (Not Detect); Cocaine Screen Urine Not Detected (Not Detect); Fentanyl, urine Not Detected (Not Detect); Methadone Screen, Urine Not Detected (Not Detect); Opiate Screen Urine Not Detected (Not Detect); Oxycodone Screen Urine Not Detected (Not Detect); Phencyclidine Screen Urine Not Detected (Not Detect)
--- NOTE | 2024-06-07 22:21 | PC.NURSE ---
Assist pt with bed beal, ua collected and sent, complete bed changed, family at the bedside.
--- NOTE | 2024-06-07 22:42 | PC.NURSE ---
poison controlled called regarding pt, okay to continue protocol vitals at this time. pt a&o, no sob, engaging with family at the bedside.
[2024-06-08] VITALS (7 sets, daily range): BP systolic 143–173; BP diastolic 62–83; PULSE 70–90; RESP 16–18; TEMP 36.3–37.1; O2SAT 90–97
--- NOTE | 2024-06-08 13:41 | PHA.MEDREC ---
Addendum entered by Merlin Tay RPh 06/08/24 15:30: [facility] verified that ketorolac eye drop bottle was picked up on 05/11/24. Med rec was reviewed by Tyesha. Original Note: Pharmacy Consult ? Medication Reconciliation Pharmacy has completed the medication reconciliation. Went to speak with patients family at bedside. Patients family was going to get a list of medications for us. Patient got transferred to Pod and family was no longer here and I never go their name or who they were since we did not know she was getting transferred to the pod the family member was gonna be with the patient all day. I called [facility] and was able to get a list of what they have filled for her. The only medications not on the list was Metformin 500mg tabs, I called them back and they stated that the patients Dr discontinued that medication on May and the Ketorlac eyedrops are filled at [facility] and they are closed as of right now lunch. I will call and confirm if the patient picked that medication up from them.
--- NOTE | 2024-06-08 13:58 | PC.NURSE ---
Pt comes to [facility] Pod from Main ED. Pt visits with daughter for some time after arrival. Pt now resting quietly with lights dimmed. NAD noted.
[2024-06-08] MEDS: Carbidopa/Levodopa 25/250 TABLET 1 TAB PO (21:05)
[2024-06-08] MEDS: oxyBUTYnin chloride ER 5 MG TAB.ER.24 10 MG PO (21:05)
[2024-06-08] MEDS: clonazePAM 0.5 MG TABLET PO (21:05)
[2024-06-08] MEDS: Perphenazine 2 MG TABLET PO (21:06)
[2024-06-08] MEDS: Cholecalciferol (Vitamin D3) 25 MCG TABLET 50 MCG PO (21:06)
[2024-06-08] MEDS: FLUoxetine HCl 20 MG CAPSULE 60 MG PO (21:06)
[2024-06-08] MEDS: busPIRone HCl 10 MG TABLET PO (21:06)
[2024-06-08] MEDS: Aspirin Enteric Coated 81 MG TABLET.DR PO (21:06)
[2024-06-08] MEDS: Famotidine 20 MG TABLET 40 MG PO (21:06)
[2024-06-08] MEDS: Benztropine Mesylate 0.5 MG TABLET PO (21:07)
[2024-06-08] MEDS: Ketorolac Tromethamine 0.5% Op 5 ML DROPS 1 DROP EYE-BOTH (21:07)
[2024-06-08] MEDS: Atorvastatin Calcium 80 MG TABLET PO (21:26)
[2024-06-08] MEDS: lisinopriL 20 MG TABLET PO (21:27)
[2024-06-09] MEDS: FLUoxetine HCl 20 MG CAPSULE 60 MG PO (08:24)
[2024-06-09] MEDS: Cholecalciferol (Vitamin D3) 25 MCG TABLET 50 MCG PO (08:24)
[2024-06-09] MEDS: clonazePAM 0.5 MG TABLET PO (08:25)
[2024-06-09] MEDS: Benztropine Mesylate 0.5 MG TABLET PO ×2 (08:25→20:09)
[2024-06-09] MEDS: Omeprazole 20 MG CAPSULE.DR PO (08:25)
[2024-06-09 08:30] VITALS: BP 152/62; PULSE 69; RESP 20; TEMP 36.7; O2SAT 95
[2024-06-09 09:35] VITALS: BP 152/62
[2024-06-09] MEDS: oxyBUTYnin chloride ER 5 MG TAB.ER.24 10 MG PO (09:35)
[2024-06-09] MEDS: lisinopriL 20 MG TABLET PO (09:35)
[2024-06-09] MEDS: Albuterol/Iprat 2.5/0.5MG 3 ML AMPUL.NEB INHALE (11:52)
--- NOTE | 2024-06-09 14:08 | PC.NURSE ---
Nurse to nurse given to s1
[2024-06-09 15:35] VITALS: BP 156/73; PULSE 76; RESP 18; TEMP 36.6; O2SAT 93
[2024-06-09] MEDS: busPIRone HCl 10 MG TABLET PO ×2 (16:53→20:08)
[2024-06-09] MEDS: Ketorolac Tromethamine 0.5% Op 5 ML DROPS 1 DROP EYE-BOTH ×2 (16:53→20:08)
--- NOTE | 2024-06-09 18:56 | PC.ADMIT ---
Saba was admitted to at 15:30 on a CV from [facility] for the treatment of SI. Precipitants of this admission include a suicide attempt where patient was found in bed wearing her old wedding dress and with empty pill bottles all over the room. During the admission process Saba is calm and cooperative, reporting no depression or anxiety and stating ?I am just grieving? referring to her who three years ago. She denies SI/HI (no plan or intent) and denies AH/VH. She reports no issues with appetite but endorses insomnia. [facility] police aide utilized for admission. Skin check done and nothing significant was found. She is on 5 min checks (new patient) and group appropriate. No physical complaints offered. Utox negative.?
[2024-06-09 20:00] VITALS: BP 137/64; PULSE 74; TEMP 36.1; O2SAT 94
[2024-06-09] MEDS: Aspirin Enteric Coated 81 MG TABLET.DR PO (20:08)
[2024-06-09] MEDS: Fluticasone Propionate 100 MCG BLST.W.DEV 1 PUFF INHALE (20:08)
[2024-06-09] MEDS: Atorvastatin Calcium 80 MG TABLET PO (20:09)
[2024-06-09] MEDS: Carbidopa/Levodopa 25/250 TABLET 1 TAB PO (20:09)
[2024-06-09] MEDS: Perphenazine 2 MG TABLET PO (20:09)
[2024-06-09] MEDS: Famotidine 20 MG TABLET 40 MG PO (20:09)
[2024-06-09] MEDS: traZODone HCL 50 MG TABLET PO (20:14)
[2024-06-10 08:30] VITALS: BP 160/78; PULSE 83; RESP 18; TEMP 36.4; O2SAT 96
--- NOTE | 2024-06-10 08:39 | P.HPPS_ITS ---
HPI Date of Service: 06/10/24 Chief Complaint: Depression/SI Sources of Information: patient interviewed, chart reviewed and crisis/core team assessment reviewed HPI Subjective Notes: Paredes Warning, Conditional Voluntary and 3 Day Narrative: ?Patient seen with automotive parts interpreter; patient's son Josiah present Patient is a 64-year-old Khmer-speaking woman with history of hypertension, depression, dementia, who presents for suicide attempt by overdose of Klonopin and Ambien in the face of depression and missing her .? Patient says that she has struggled with depression for years but has been very sad since her .? Over the past weeks patient has been missing him more with the approaching holidays.? This past week patient says she was very sad, and that she got agitated.. wanted to be with him and so overdosed on Ambien and Klonopin.? Patient was found in her bed, wearing her wedding dress with empty pill bottles in the room and her family brought her to the emergency room. ?Patient told nursing staff ?.I am just grieving..? ?Patient said that she is feeling better and now not depressed. Of note, her affect is brighter, and she smiling even laughing some.? She says she is no longer feeling suicidal and hopes to go home soon.? Housekeeping/Laundry reviewed medication history and patient said she would like to add or try another medication if it might help with depression; reviewed risks/side effects of Wellbutrin and patient agree. Denies history of drug or alcohol use; sometimes has auditory hallucinations but it is only of her mother and they are always positive, comforting. Past Psychiatric History: Psychiatric admission in [place] about 30 years for depression ago per daughter Patient has psychologist Cassi Nazario Medical Evaluation Reviewed: Hospitalist [facility] Pending [facility] Medical History (Updated 06/10/24 @ 08:57 by Tej Gonzalez MD) MDD (major depressive disorder), recurrent, severe, with psychosis Pacemaker Dementia HTN (hypertension) Anxiety Family History: Deferred Social History: , having about 3 years ago Lives at home with her son and daughter who are supportive Daughter is the 1 who gives out medication Substance History: None Trauma History: Deferred Diagnostics Vital Signs (24Hr): Vital Signs - 24 hr 06/09/24 09:35 06/09/24 15:35 06/09/24 20:00 Temperature 97.8 F 97 F Pulse Rate 76 74 Respiratory Rate 18 Blood Pressure 152/62 H 156/73 H 137/64 Pulse Oximetry 93 94 Oxygen Delivery Method Room Air Room Air BMI result Body Mass Index 31.0 Labs 06/07/24 09:48 06/07/24 09:48 Imaging Radiology Impressions: ITS Impressions Chest X-Ray 06/07/24 09:16 IMPRESSION: Cardiomegaly versus pericardial effusion and mild interstitial lung edema. Questionable left-sided pleural effusion. Electronically signed by: Harry Grubbs MD 06/07/2024 12:49 PM EST RP Head CT 06/07/24 10:28 IMPRESSION: No acute fracture, bony calvarium. No acute intracranial hemorrhage. If patient's symptoms persist recommend non-IV contrast MRI brain. Acute on chronic sphenoid sinus disease. Electronically signed by: Harry Grubbs MD 06/07/2024 01:08 PM EST RP Chest CT 06/07/24 15:10 IMPRESSION: 1. No pleural effusion. 2. Ill-defined groundglass opacities along the major fissure in the right upper lobe. This may represent an infectious or inflammatory process. 3. Centrilobular emphysema. Fleischner guidelines were followed. Electronically signed by: Jose Carrion MD 06/07/2024 04:06 PM EST RP Meds/Allergies Meds Home Medications ?Medication ?Instructions ?Recorded ?Confirmed ?Type aspirin 81 mg tablet,delayed 81 mg PO BEDTIME 06/08/24 06/08/24 History release atorvastatin 80 mg tablet 80 mg PO BEDTIME 06/08/24 06/08/24 History benztropine 0.5 mg tablet 0.5 mg PO BID 06/08/24 06/08/24 History buspirone 10 mg tablet 10 mg PO TID 06/08/24 06/08/24 History carbidopa 25 mg-levodopa 250 mg 1 tab PO BID 06/08/24 06/08/24 History tablet cholecalciferol (vitamin D3) 50 50 mcg PO DAILY 06/08/24 06/08/24 History mcg (2,000 unit) capsule (Vitamin D3) clonazepam 0.5 mg tablet 0.5 mg PO DAILY 06/08/24 06/08/24 History famotidine 40 mg tablet 40 mg PO BEDTIME 06/08/24 06/08/24 History fluoxetine 20 mg capsule 60 mg PO DAILY 06/08/24 06/08/24 History fluticasone furoate 100 1 inh inhalation DAILY 06/08/24 06/08/24 History mcg/actuation blister powder for inhalation (Arnuity Ellipta) ipratropium 20 mcg-albuterol 100 1 puff inhalation QID 06/08/24 06/08/24 History mcg/actuation mist for inhalation (Combivent Respimat) ketorolac 0.5 % eye drops 1 drp ophthalmic (eye) TID 06/08/24 06/08/24 History lisinopril 20 mg tablet 20 mg PO DAILY 06/08/24 06/08/24 History oxybutynin chloride 10 mg 10 mg PO DAILY 06/08/24 06/08/24 History tablet,extended release 24 hr pantoprazole 40 mg tablet,delayed 40 mg PO DAILY@0630 06/08/24 06/08/24 History release perphenazine 2 mg tablet 2 mg PO BID 06/08/24 06/08/24 History umeclidinium 62.5 mcg/actuation 1 inh inhalation DAILY 06/08/24 06/08/24 History blister powder for inhalation (Incruse Ellipta) zolpidem 10 mg tablet 10 mg PO BEDTIME PRN Insomnia 06/08/24 06/08/24 History Allergies Allergies Allergy/AdvReac Type Severity Reaction Status Date / Time No Known Allergies Allergy Verified 06/07/24 09:32 [No Known Allergies*] Mental Status Exam Mental Status Exam Narrative: Pt is alert and oriented; behavior is cooperative, friendly and calm; patient is not in distress; dressed in hospital attire with unkempt hair but adequate hygiene; mood is described as now, not depressed and affect congruent, brighter, smiling some; eye contact appropriate; Speech is normal rate, volume and prosody and not pressured; no psychomotor agitation/retardation present; thought process is organized and goal directed; Thought content is on going back home, tx; otherwise pertinent to relevant topics and without any delusional content, paranoid ideations or grandiosity; denies any SI/HI. Intermittent AH but only of family members and only ever encouraging; patient does not appear internally preoccupied. Patients insight and judgment appear intact. Assessment & Plan Assessment & Plan (1) MDD (major depressive disorder), recurrent, severe, with psychosis: Status: Acute Code(s): F33.3 - Major depressive disorder, recurrent, severe with psychotic symptoms Plan HPI: ?Patient seen with automotive parts interpreter; patient's son Josiah present Patient is a 64-year-old Khmer-speaking woman with history of hypertension, depression, dementia, who presents for suicide attempt by overdose of Klonopin and Ambien in the face of depression and missing her .? Patient says that she has struggled with depression for years but has been very sad since her .? Over the past weeks patient has been missing him more with the approaching holidays.? This past week patient says she was very sad, and that she got agitated.. wanted to be with him and so overdosed on Ambien and Klonopin.? Patient was found in her bed, wearing her wedding dress with empty pill bottles in the room and her family brought her to the emergency room. ?Patient told nursing staff ?I am just grieving..? ?Patient said that she is feeling better and now not depressed. Of note, her affect is brighter, and she smiling even laughing some.? She says she is no longer feeling suicidal and hopes to go home soon.? Housekeeping/Laundry reviewed medication history and patient said she would like to add or try another medication if it might help with depression; reviewed risks/side effects of Wellbutrin and patient agree. Denies history of drug or alcohol use; sometimes has auditory hallucinations but it is only of her mother and they are always positive, comforting. Formulation/clinical reasoning: Patient has history of depression but is overall remains safe in the community until recently. Patient endorses intermittent AH that are mostly present when she sad, but are of her mother and comforting; will diagnosed with MDD with psychotic features. Apparently depression worsened over the past weeks, grieving for her . Patient's son present during interview who concurs with her report. Patient says she is no longer suicidal and initially asks to go home however agrees that it would be beneficial to stay and try a medication to help with depression. She agrees with trying Wellbutrin. Patient has history of hypertension so will monitor blood pressure, heart rate. Patient lives at home with her supportive son and daughter. Her daughter handles her medications. Team will discuss case with her daughter who is supposed to be visiting today and plan for keeping medications safe place. -patient has reported history of dementia and is on carbidopa/levodopa; during interview patient was fully alert and organized in speech behavior. Plan: CV Q 15 minutes Start Wellbutrin 150 XL daily; BP mildly hypertensive; will monitor blood pressure, heart rate, QTC Otherwise continue home medications Get further collateral from daughter Patient educated on: diagnosis, medication risk/benefits and medical condition Informed Consent: understands Reason for continued inpatient stay Substantial Risk for: rapid decompensation Statement Statement: I have reviewed the history and physical and performed a pertinent examination on my patient. No changes have occurred unless specified. If the History and Physical was not performed prior to admission, the Hospitalist's service will be consulted for completing the admission physical. Time Spent With Patient Time: Total time managing care of this patient today ____ minutes.
[2024-06-10] MEDS: Tiotropium Bromide 2.5 mcg 1 PUFF/2.5 MCG MIST.INHAL 2 PUFF INHALE (08:46)
[2024-06-10] MEDS: Ketorolac Tromethamine 0.5% Op 5 ML DROPS 1 DROP EYE-BOTH ×3 (08:46→20:41)
[2024-06-10] MEDS: clonazePAM 0.5 MG TABLET PO (08:47)
[2024-06-10] MEDS: oxyBUTYnin chloride ER 5 MG TAB.ER.24 10 MG PO (08:47)
[2024-06-10] MEDS: Fluticasone Propionate 100 MCG BLST.W.DEV 1 PUFF INHALE ×2 (08:47→20:42)
[2024-06-10] MEDS: Cholecalciferol (Vitamin D3) 25 MCG TABLET 50 MCG PO (08:47)
[2024-06-10] MEDS: FLUoxetine HCl 20 MG CAPSULE 60 MG PO (08:47)
[2024-06-10 08:48] VITALS: BP 160/78
[2024-06-10] MEDS: lisinopriL 20 MG TABLET PO (08:48)
[2024-06-10] MEDS: Benztropine Mesylate 0.5 MG TABLET PO ×2 (08:48→20:43)
[2024-06-10] MEDS: Omeprazole 20 MG CAPSULE.DR PO (08:48)
[2024-06-10] MEDS: busPIRone HCl 10 MG TABLET PO ×3 (08:49→20:43)
[2024-06-10] MEDS: Perphenazine 2 MG TABLET PO ×2 (08:49→20:43)
[2024-06-10] MEDS: Carbidopa/Levodopa 25/250 TABLET 1 TAB PO ×2 (08:49→20:43)
[2024-06-10 09:18] LABS: Estimated Average Glucose 123 mg/dL; Hemoglobin A1C 128.5959 umol/L; Hemoglobin A1c % 5.9 % (<6.0); Total Hemoglobin (HGBA1C) 3149.6323 umol/L
[2024-06-10 09:23] LABS: Alanine Aminotransferase 25 U/L (0-31); Albumin Level 3.8 g/dL (3.5-5.0); Alkaline Phosphatase 94 U/L (39-117); Anion Gap 14 (12-20); Aspartate Amino Transferase 31 U/L (5-31); Bilirubin Total 0.3 mg/dL (0.0-1.0); Blood Urea Nitrogen 13 mg/dL (9-16); Calcium 9.5 mg/dL (8.4-10.2); Carbon Dioxide 26 mmol/L (22-29); Chloride 108 mmol/L (96-108); Creatinine Clr Calc Pharmacy 68.3; Estimated Glomerular Filt Rate > 60; Glucose Random 151 mg/dL (60-115); Potassium 3.6 mmol/L (3.3-5.1); Sodium 144 mmol/L (135-145)
[2024-06-10 09:30] LABS: Cholesterol 128 mg/dL (<200); HDL Cholesterol 44 mg/dL (>40); LDL Cholesterol Calculated 53 mg/dL (<100); Triglycerides 155 mg/dL (<150)
[2024-06-10 09:44] LABS: TSH reflex Free T4 1.72 uIU/mL (0.32-4.0)
[2024-06-10] MEDS: buPROPion HCl XL 150 MG TAB.ER.24H PO (09:54)
--- NOTE | 2024-06-10 12:08 | PC.NURSE ---
Respiratory therapy called for Douneb administration and he said he knew nothing about it and would look into it as soon as he could that he was in the ICU.
--- NOTE | 2024-06-10 12:30 | PC.RT ---
RT called, pt has schedule duoneb QID. An RT this am spoke with Dr. Gonzalez concerning changing her nebulizer to an Albuterol inhale which he agreed to review. This RT went down and assessed pt, rr 16, LS clear bilat but diminished in bases and spo2 96% on RA. Nursing is aware. RT to contact physician again.
--- NOTE | 2024-06-10 14:12 | PC.RT ---
Rt review pt home med list. Noted 1puff of combivent respimat qid. Hospital order for duoneb Qid, the nebulizer is equal to 3 to 5 puffs. MD made aware this is an increase in pt dosage. RT recommend albuterol 1 puff qid as the Spiriva the pt also takes in the morning negates the Ipratropium portion of the duoneb.
--- NOTE | 2024-06-10 14:39 | PC.NURSE ---
Respiratory therapy down to see patient. He says that her lung sounds are clear but diminihed and he will talk to the covering doctor about stopping the Duo nebs and putting in a PRN Albuterol Inhaler.
[2024-06-10 20:00] VITALS: BP 134/63; PULSE 79; RESP 16; TEMP 36.2; O2SAT 94
[2024-06-10] MEDS: COMBIVENT RESPIMAT 1 EACH PO (20:41)
[2024-06-10] MEDS: Famotidine 20 MG TABLET 40 MG PO (20:43)
[2024-06-10] MEDS: Aspirin Enteric Coated 81 MG TABLET.DR PO (20:43)
[2024-06-10] MEDS: Atorvastatin Calcium 80 MG TABLET PO (20:43)
[2024-06-10] MEDS: traZODone HCL 50 MG TABLET PO (20:44)
[2024-06-11] MEDS: Omeprazole 20 MG CAPSULE.DR PO (06:09)
[2024-06-11 08:36] VITALS: BP 136/63; PULSE 70; RESP 18; TEMP 36.2; O2SAT 95
[2024-06-11] MEDS: Fluticasone Propionate 100 MCG BLST.W.DEV 1 PUFF INHALE ×2 (08:41→21:17)
[2024-06-11] MEDS: Ketorolac Tromethamine 0.5% Op 5 ML DROPS 1 DROP EYE-BOTH ×3 (08:41→21:17)
[2024-06-11] MEDS: COMBIVENT RESPIMAT 1 EACH PO ×4 (08:41→21:17)
[2024-06-11] MEDS: Tiotropium Bromide 2.5 mcg 1 PUFF/2.5 MCG MIST.INHAL 2 PUFF INHALE (08:41)
[2024-06-11] MEDS: FLUoxetine HCl 20 MG CAPSULE 60 MG PO (08:42)
[2024-06-11] MEDS: oxyBUTYnin chloride ER 5 MG TAB.ER.24 10 MG PO (08:42)
[2024-06-11] MEDS: lisinopriL 20 MG TABLET PO (08:43)
[2024-06-11] MEDS: Cholecalciferol (Vitamin D3) 25 MCG TABLET 50 MCG PO (08:43)
[2024-06-11] MEDS: clonazePAM 0.5 MG TABLET PO (08:44)
[2024-06-11] MEDS: buPROPion HCl XL 150 MG TAB.ER.24H PO (08:44)
[2024-06-11] MEDS: busPIRone HCl 10 MG TABLET PO ×3 (08:44→21:19)
[2024-06-11] MEDS: Carbidopa/Levodopa 25/250 TABLET 1 TAB PO ×2 (08:45→21:19)
[2024-06-11] MEDS: Perphenazine 2 MG TABLET PO ×2 (08:49→21:20)
[2024-06-11] MEDS: Benztropine Mesylate 0.5 MG TABLET PO ×2 (08:51→21:19)
[2024-06-11 20:00] VITALS: BP 149/67; PULSE 70; RESP 18; TEMP 36.4; O2SAT 97
[2024-06-11] MEDS: Atorvastatin Calcium 80 MG TABLET PO (21:19)
[2024-06-11] MEDS: Aspirin Enteric Coated 81 MG TABLET.DR PO (21:19)
[2024-06-11] MEDS: Famotidine 20 MG TABLET 40 MG PO (21:19)
[2024-06-11] MEDS: traZODone HCL 50 MG TABLET PO (21:20)
--- NOTE | 2024-06-11 22:34 | HO.PSYCHPN ---
Subjective Subjective Date of Service: 06/11/24 Reason For Visit: Depression/SI Interim History: met with patient with take out waiter/waitress; discussed with team pt reports good mood and affect is noticeably brighter, smiling. Pt says she thinks Wellbutrin (which she agreed to on admission). She denies any SI at all. She would very much like to go home. pt's daughter brought in Diagnostics Vital Signs (24Hr): Vital Signs - 24 hr 06/11/24 08:36 06/11/24 20:00 Temperature 97.2 F 97.6 F Pulse Rate 70 70 Respiratory Rate 18 18 Blood Pressure 136/63 149/67 H Pulse Oximetry 95 97 Oxygen Delivery Method Room Air Room Air BMI result Body Mass Index 31.0 Labs 06/07/24 09:48 06/10/24 09:00 Labs: Laboratory Results - last 48 hr 06/10/24 09:00 Sodium 144 Potassium 3.6 Chloride 108 Carbon Dioxide 26 Anion Gap 14 BUN 13 Creatinine 0.90 Estim Creat Clear Calc 68.3 Estimated GFR > 60 Random Glucose 151 H Estimat Average Glucose 123 Hemoglobin A1c % 5.9 Calcium 9.5 Total Bilirubin 0.3 AST 31 ALT 25 Alkaline Phosphatase 94 Total Protein 7.0 Albumin 3.8 Triglycerides 155 H Cholesterol 128 LDL Cholesterol, Calc 53 HDL Cholesterol 44 TSH 1.72 Imaging Radiology Impressions: ITS Impressions Chest X-Ray 06/07/24 09:16 IMPRESSION: Cardiomegaly versus pericardial effusion and mild interstitial lung edema. Questionable left-sided pleural effusion. Electronically signed by: Harry Grubbs MD 06/07/2024 12:49 PM EST RP Head CT 06/07/24 10:28 IMPRESSION: No acute fracture, bony calvarium. No acute intracranial hemorrhage. If patient's symptoms persist recommend non-IV contrast MRI brain. Acute on chronic sphenoid sinus disease. Electronically signed by: Harry Grubbs MD 06/07/2024 01:08 PM EST RP Chest CT 06/07/24 15:10 IMPRESSION: 1. No pleural effusion. 2. Ill-defined groundglass opacities along the major fissure in the right upper lobe. This may represent an infectious or inflammatory process. 3. Centrilobular emphysema. Fleischner guidelines were followed. Electronically signed by: Jose Carrion MD 06/07/2024 04:06 PM [facility] Medications Medications Current Medications Acetaminophen (Acetaminophen 325 Mg Tablet) 650 mg PO Q6H PRN PRN Reason: Headache/Pain Mild Scale (1-3) Al Hydroxide/Mg Hydroxide (Magnesium Hydrox/Alum Hydrox 30 Ml Oral.Susp) 30 ml PO Q6H PRN PRN Reason: Heartburn/Nausea Aspirin (Aspirin Enteric Coated 81 Mg Tablet.Dr) 81 mg PO BEDTIME [facility] Last Admin: 06/11/24 21:19 Dose: 81 mg Atorvastatin Calcium (Atorvastatin Calcium 80 Mg Tablet) 80 mg PO BEDTIME [facility] Last Admin: 06/11/24 21:19 Dose: 80 mg Benztropine Mesylate (Benztropine Mesylate 0.5 Mg Tablet) 0.5 mg PO BID [facility] Last Admin: 06/11/24 21:19 Dose: 0.5 mg Bupropion HCl (Bupropion Hcl Xl 150 Mg Tab.Er.24h) 150 mg PO DAILY [facility] Last Admin: 06/11/24 08:44 Dose: 150 mg Buspirone HCl (Buspirone Hcl 10 Mg Tablet) 10 mg PO TID [facility] Last Admin: 06/11/24 21:19 Dose: 10 mg Carbidopa/Levodopa (Carbidopa/Levodopa 25/250 Tablet) 1 tab PO BID [facility] Last Admin: 06/11/24 21:19 Dose: 1 tab Clonazepam (Clonazepam 0.5 Mg Tablet) 0.5 mg PO DAILY [facility] Last Admin: 06/11/24 08:44 Dose: 0.5 mg Clonidine HCl (Clonidine Hcl 0.1 Mg Tablet) 0.1 mg PO Q4H PRN; Protocol PRN Reason: anxiety Famotidine (Famotidine 20 Mg Tablet) 40 mg PO BEDTIME [facility] Last Admin: 06/11/24 21:19 Dose: 40 mg Fluoxetine HCl (Fluoxetine Hcl 20 Mg Capsule) 60 mg PO DAILY [facility] Last Admin: 06/11/24 08:42 Dose: 60 mg Fluticasone Propionate (Fluticasone Propionate 100 Mcg Blst.W.Dev) 1 puff INHALE RBID [facility] Last Admin: 06/11/24 21:17 Dose: 1 puff Ketorolac Tromethamine (Ketorolac Tromethamine 0.5% Op 5 Ml Drops) 1 drop EYE-BOTH TID [facility] Last Admin: 06/11/24 21:17 Dose: 1 drop Lisinopril (Lisinopril 20 Mg Tablet) 20 mg PO DAILY [facility]; Protocol Last Admin: 06/11/24 08:43 Dose: 20 mg Magnesium Hydroxide (Milk Of Magnesia 30 Ml Oral.Susp) 30 ml PO DAILY PRN PRN Reason: Constipation Nicotine (Nicotine 21 Mg Patch.Td24) 21 mg TRANSDERMA DAILY PRN PRN Reason: smoking cessation Nicotine Polacrilex (Nicotine Polacrilex 2 Mg Gum) 4 mg BUCCAL Q2H PRN PRN Reason: Nicotine Cravings Patient Own ( Combivent Respimat 20 Mcg/100 Mcg) 1 puff PO RQID [facility] Last Admin: 06/11/24 21:17 Dose: 1 puff Omeprazole (Omeprazole 20 Mg Capsule.Dr) 20 mg PO DAILY@0630 [facility] Last Admin: 06/11/24 06:09 Dose: 20 mg Oxybutynin Chloride (Oxybutynin Chloride Er 5 Mg Tab.Er.24) 10 mg PO DAILY [facility] Last Admin: 06/11/24 08:42 Dose: 10 mg Perphenazine (Perphenazine 2 Mg Tablet) 2 mg PO BID [facility] Last Admin: 06/11/24 21:20 Dose: 2 mg Tiotropium Blanch (Tiotropium Blanch 2.5 Mcg 1 Puff/2.5 Mcg Mist.Inhal) 2 puff INHALE RDAILY [facility] Last Admin: 06/11/24 08:41 Dose: 2 puff Trazodone HCl (Trazodone Hcl 50 Mg Tablet) 50 mg PO BEDTIME MRX1 PRN PRN Reason: Insomnia Last Admin: 06/11/24 21:20 Dose: 50 mg Vitamin D (Cholecalciferol (Vitamin D3) 25 Mcg Tablet) 50 mcg PO DAILY [facility] Last Admin: 06/11/24 08:43 Dose: 50 mcg Zolpidem Tartrate (Zolpidem Tartrate 5 Mg Tablet) 10 mg PO BEDTIME PRN PRN Reason: Sleep IF trazodone not helping Allergies Allergies Allergy/AdvReac Type Severity Reaction Status Date / Time No Known Allergies Allergy Verified 06/07/24 09:32 [No Known Allergies*] Assessment & Plan Assessment & Plan (1) MDD (major depressive disorder), recurrent, severe, with psychosis: Status: Acute Code(s): F33.3 - Major depressive disorder, recurrent, severe with psychotic symptoms Plan HPI: ?Patient seen with take out waiter/waitress; patient's son Josiah present Patient is a 64-year-old [place]-speaking woman with history of hypertension, depression, dementia, who presents for suicide attempt by overdose of Klonopin and Ambien in the face of depression and missing her .? Patient says that she has struggled with depression for years but has been very sad since her .? Over the past weeks patient has been missing him more with the approaching holidays.? This past week patient says she was very sad, and that she got agitated.. wanted to be with him and so overdosed on Ambien and Klonopin.? Patient was found in her bed, wearing her wedding dress with empty pill bottles in the room and her family brought her to the emergency room. ?Patient told nursing staff ?I am just grieving..? ?Patient said that she is feeling better and now not depressed. Of note, her affect is brighter, and she smiling even laughing some.? She says she is no longer feeling suicidal and hopes to go home soon.? Divisional Storekeeper reviewed medication history and patient said she would like to add or try another medication if it might help with depression; reviewed risks/side effects of Wellbutrin and patient agree. Denies history of drug or alcohol use; sometimes has auditory hallucinations but it is only of her mother and they are always positive, comforting. Formulation/clinical reasoning: Patient has history of depression but is overall remains safe in the community until recently. Patient endorses intermittent AH that are mostly present when she sad, but are of her mother and comforting; will diagnosed with MDD with psychotic features. Apparently depression worsened over the past weeks, grieving for her . Patient's son present during interview who concurs with her report. Patient says she is no longer suicidal and initially asks to go home however agrees that it would be beneficial to stay and try a medication to help with depression. She agrees with trying Wellbutrin. Patient has history of hypertension so will monitor blood pressure, heart rate. Patient lives at home with her supportive son and daughter. Her daughter handles her medications. Team will discuss case with her daughter who is supposed to be visiting today and plan for keeping medications safe place. -patient has reported history of dementia and is on carbidopa/levodopa; during interview patient was fully alert and organized in speech behavior. Plan: CV Q 15 minutes Start Wellbutrin 150 XL daily; BP mildly hypertensive; will monitor blood pressure, heart rate, QTC Otherwise continue home medications Get further collateral from daughter Time Spent With Patient Time: Total time managing care of this patient today ____ minutes.
[2024-06-12] MEDS: Omeprazole 20 MG CAPSULE.DR PO (06:16)
[2024-06-12 08:00] VITALS: BP 132/65; PULSE 82; RESP 18; TEMP 36.7; O2SAT 95
[2024-06-12] MEDS: COMBIVENT RESPIMAT 1 EACH PO ×2 (08:30→11:50)
[2024-06-12] MEDS: Tiotropium Bromide 2.5 mcg 1 PUFF/2.5 MCG MIST.INHAL 2 PUFF INHALE (08:30)
[2024-06-12] MEDS: Ketorolac Tromethamine 0.5% Op 5 ML DROPS 1 DROP EYE-BOTH (08:30)
[2024-06-12] MEDS: Fluticasone Propionate 100 MCG BLST.W.DEV 1 PUFF INHALE (08:30)
[2024-06-12] MEDS: Cholecalciferol (Vitamin D3) 25 MCG TABLET 50 MCG PO (08:31)
[2024-06-12] MEDS: oxyBUTYnin chloride ER 5 MG TAB.ER.24 10 MG PO (08:31)
[2024-06-12] MEDS: clonazePAM 0.5 MG TABLET PO (08:31)
[2024-06-12] MEDS: buPROPion HCl XL 150 MG TAB.ER.24H PO (08:31)
[2024-06-12] MEDS: FLUoxetine HCl 20 MG CAPSULE 60 MG PO (08:31)
[2024-06-12] MEDS: Perphenazine 2 MG TABLET PO (08:32)
[2024-06-12] MEDS: busPIRone HCl 10 MG TABLET PO (08:32)
[2024-06-12] MEDS: lisinopriL 20 MG TABLET PO (08:32)
[2024-06-12] MEDS: Carbidopa/Levodopa 25/250 TABLET 1 TAB PO (08:32)
[2024-06-12] MEDS: Benztropine Mesylate 0.5 MG TABLET PO (08:32)
--- NOTE | 2024-06-12 10:15 | P.DS_ITS ---
DS: Providers Provider Date of Service: 06/12/24 Date of admission: 06/09/24 13:51 Date of discharge: 06/12/24 Primary care physician: Carmen Leahy DO Attending physician on discharge: Zelalem Guerrero DS: Diagnosis Discharge Diagnosis (1) MDD (major depressive disorder), recurrent, severe, with psychosis: Status: Acute DS: Medications Discharge Medications Home Medications: Home Medications ?Medication ?Instructions ?Recorded ?Confirmed aspirin 81 mg tablet,delayed 81 mg PO BEDTIME 06/08/24 06/08/24 release atorvastatin 80 mg tablet 80 mg PO BEDTIME 06/08/24 06/08/24 benztropine 0.5 mg tablet 0.5 mg PO BID 06/08/24 06/08/24 buspirone 10 mg tablet 10 mg PO TID 06/08/24 06/08/24 carbidopa 25 mg-levodopa 250 mg 1 tab PO BID 06/08/24 06/08/24 tablet cholecalciferol (vitamin D3) 50 50 mcg PO DAILY 06/08/24 06/08/24 mcg (2,000 unit) capsule (Vitamin D3) clonazepam 0.5 mg tablet 0.5 mg PO DAILY 06/08/24 06/08/24 famotidine 40 mg tablet 40 mg PO BEDTIME 06/08/24 06/08/24 fluoxetine 20 mg capsule 60 mg PO DAILY 06/08/24 06/08/24 fluticasone furoate 100 1 inh inhalation DAILY 06/08/24 06/08/24 mcg/actuation blister powder for inhalation (Arnuity Ellipta) ipratropium 20 mcg-albuterol 100 1 puff inhalation QID 06/08/24 06/08/24 mcg/actuation mist for inhalation (Combivent Respimat) ketorolac 0.5 % eye drops 1 drp ophthalmic (eye) TID 06/08/24 06/08/24 lisinopril 20 mg tablet 20 mg PO DAILY 06/08/24 06/08/24 oxybutynin chloride 10 mg 10 mg PO DAILY 06/08/24 06/08/24 tablet,extended release 24 hr pantoprazole 40 mg tablet,delayed 40 mg PO DAILY@0630 06/08/24 06/08/24 release perphenazine 2 mg tablet 2 mg PO BID 06/08/24 06/08/24 umeclidinium 62.5 mcg/actuation 1 inh inhalation DAILY 06/08/24 06/08/24 blister powder for inhalation (Incruse Ellipta) zolpidem 10 mg tablet 10 mg PO BEDTIME PRN Insomnia 06/08/24 06/08/24 Mental Status Exam Mental Status Exam Patient Appearance: Well Grooomed and Appropriate Patient Orientation: Person and Situation Level of Consciousness: Awake and Appropriate Patient Behavior: Guarded and Passive Mood Description: Withdrawn Affect Description: Constricted Patient Cognition Impaired: Yes Ability to Follow Directions: Good Speech Pattern: Clear Hallucinations: None Delusions: Not Present Thought Process: Distracted and Slowed Thinking Thought Content: positive for [place] and positive for Circumstantial Judgement: Fair Data Data Completed and Pending Completed studies during hospitalization [Text1]: 06/07/24 06/07/24 06/07/24 09:37 09:48 09:49 WBC 8.4 RBC 4.28 Hgb 12.5 Hct 36.5 L MCV 85.3 MCH 29.2 MCHC 34.2 RDW 12.7 Plt Count 239 MPV 10.4 Immature Gran % (Auto) 0.2 Neut % (Auto) 77.4 H Lymph % (Auto) 15.2 L [place] % (Auto) 5.9 Eos % (Auto) 0.7 Baso % (Auto) 0.6 Lymph # (Auto) 1.3 [place] # (Auto) 0.5 Eos # (Auto) 0.1 Baso # (Auto) 0.1 Abs Immat Gran (auto) 0.02 Absolute Neuts (auto) 6.5 Absolute Nucleated RBC 0.000 Nucleated RBC % (auto) 0.0 PT 13.4 H INR 1.2 H Sodium 149 H Potassium 4.2 Chloride 113 H Carbon Dioxide 28 Anion Gap 12 BUN 15 Creatinine 0.85 Estim Creat Clear Calc 72.3 Estimated GFR > 60 POC Glucose 133 H Random Glucose 139 H Estimat Average Glucose Hemoglobin A1c % Calcium 9.2 Magnesium 2.1 Total Bilirubin 0.3 Direct Bilirubin 0.1 AST 37 H ALT 45 H Alkaline Phosphatase 98 Ammonia 38 Troponin I High Sens 3.5 Total Protein 7.3 Albumin 4.1 Triglycerides Cholesterol LDL Cholesterol, Calc HDL Cholesterol Lipase 16 TSH Urine Color Urine Appearance Urine pH Ur Specific [place] Urine Protein Urine Glucose (UA) Urine Ketones Urine Blood Urine Nitrite Ur Leukocyte Esterase Salicylates < 5.0 L Urine Opiates Screen Ur Buprenorphine Scrn Ur Oxycodone Screen Urine Methadone Screen Urine Fentanyl Screen Acetaminophen < 3 Ur Barbiturates Screen Ur Phencyclidine Scrn Ur Amphetamines Screen U Benzodiazepines Scrn Urine Cocaine Screen U Marijuana (THC) Screen Ethyl Alcohol < 10 Influenza Type A (PCR) NEGATIVE Influenza Type B (PCR) NEGATIVE RSV RNA Qual (PCR) NEGATIVE SARS-CoV-2 RNA (RT-PCR) NEGATIVE 06/07/24 06/10/24 20:29 09:00 WBC RBC Hgb Hct MCV MCH MCHC RDW Plt Count MPV Immature Gran % (Auto) Neut % (Auto) Lymph % (Auto) [place] % (Auto) Eos % (Auto) Baso % (Auto) Lymph # (Auto) [place] # (Auto) Eos # (Auto) Baso # (Auto) Abs Immat Gran (auto) Absolute Neuts (auto) Absolute Nucleated RBC Nucleated RBC % (auto) PT INR Sodium 144 Potassium 3.6 Chloride 108 Carbon Dioxide 26 Anion Gap 14 BUN 13 Creatinine 0.90 Estim Creat Clear Calc 68.3 Estimated GFR > 60 POC Glucose Random Glucose 151 H Estimat Average Glucose 123 Hemoglobin A1c % 5.9 Calcium 9.5 Magnesium Total Bilirubin 0.3 Direct Bilirubin AST 31 ALT 25 Alkaline Phosphatase 94 Ammonia Troponin I High Sens Total Protein 7.0 Albumin 3.8 Triglycerides 155 H Cholesterol 128 LDL Cholesterol, Calc 53 HDL Cholesterol 44 Lipase TSH 1.72 Urine Color Yellow Urine Appearance Clear Urine pH 6.5 Ur Specific [place] 1.015 Urine Protein Negative Urine Glucose (UA) Negative Urine Ketones Negative Urine Blood Negative Urine Nitrite Negative Ur Leukocyte Esterase Negative Salicylates Urine Opiates Screen Not Detected Ur Buprenorphine Scrn Not Detected Ur Oxycodone Screen Not Detected Urine Methadone Screen Not Detected Urine Fentanyl Screen Not Detected Acetaminophen Ur Barbiturates Screen Not Detected Ur Phencyclidine Scrn Not Detected Ur Amphetamines Screen Not Detected U Benzodiazepines Scrn Not Detected Urine Cocaine Screen Not Detected U Marijuana (THC) Screen Not Detected Ethyl Alcohol Influenza Type A (PCR) Influenza Type B (PCR) RSV RNA Qual (PCR) SARS-CoV-2 RNA (RT-PCR) 06/07/24 10:11 Blood - Venous Blood Culture - Preliminary No growth after 48 hours. 06/07/24 09:47 Blood - Venous Blood Culture - Preliminary No growth after 48 hours. Imaging Diagnostic Imaging Impressions Chest X-Ray 06/07/24 09:16 IMPRESSION: Cardiomegaly versus pericardial effusion and mild interstitial lung edema. Questionable left-sided pleural effusion. Electronically signed by: Harry Grubbs MD 06/07/2024 12:49 PM EST RP Head CT 06/07/24 10:28 IMPRESSION: No acute fracture, bony calvarium. No acute intracranial hemorrhage. If patient's symptoms persist recommend non-IV contrast MRI brain. Acute on chronic sphenoid sinus disease. Electronically signed by: Harry Grubbs MD 06/07/2024 01:08 PM EST RP Chest CT 06/07/24 15:10 IMPRESSION: 1. No pleural effusion. 2. Ill-defined groundglass opacities along the major fissure in the right upper lobe. This may represent an infectious or inflammatory process. 3. Centrilobular emphysema. Fleischner guidelines were followed. Electronically signed by: Jose Carrion MD 06/07/2024 04:06 PM EST RP DS: Summary Hospital Course Hospital Course: The patient is a 64-year-old [place] female, , mother of adult children with good social support with a past history of major depressive disorder, Parkinson's disease and Alzheimer's treated in the community by Dr. Hopkins at [facility]. The patient does not have prior psychiatric history of inpatient level of care or suicidal attempts but she was brought to the emergency room after she intentionally overdosed on Klonopin and Ambien in a suicidal attempt. She was found by her family on her wedding dress. The patient lost her 3 years ago by COVID and since then she had been more dysphoric. She was assessed by crisis and transferring to this facility for psychiatric stabilization. Please see the HPI of the admission note for further details. On admission, the patient was remorseful up the impulsive act that she did apparently she overdose in impulsive manner, she did not planning fired. She was feeling dysphoric but at the moment of the interview she was pleasant, cooperative, future oriented and able to contract for safety. Her children came to the hospital and we interview her. Apparently from now on, her daughter will control her medications, her son is going to take care of her and they want her back to the community as soon as possible. Also, there involved on the aftercare and on the medication management. I examined the patient, and the patient was able to admit dysphoria but she was able to contract for safety, future oriented, a shame about the overdose. She is willing to continue working with her outpatient providers and there were no safety concerns at the moment of the discharge. She adamantly denies suicidal ideation or psychotic symptoms. Time spent discussing smoking cessation with patient: 3 to 10 minutes Status at Discharge Cognitive/behavioral status at discharge: Impaired at baseline Functional status at discharge: independent ambulation Overall status at discharge: patient is back to baseline Time Spent with Patient Time attestation: Total time managing care of this patient today _30___ minutes. Time spent: Less than 30 minutes Discharge Plan Discharge Anticipated Discharge Date/Time: 06/12/24 11:30 Patient Disposition: Home, Self-Care Discharge Diagnosis: Major depressive disorder recurrent episode severe with psychotic features. Dementia Parkinson's disease Referrals: Carmen Leahy DO [Primary Care Provider] - 1 Week Discharge Medications: New trazodone 50 mg Tablet 50 mg PO BEDTIME MRX1 PRN (Reason: Insomnia) 30 Days Qty: 30 0RF bupropion HCl 150 mg Tablet Extended Release 24 Hr 150 mg PO DAILY 30 Days Qty: 30 0RF Continued atorvastatin 80 mg tablet 80 mg PO BEDTIME 30 Days Qty: 30 0RF benztropine 0.5 mg tablet 0.5 mg PO BID 30 Days Qty: 60 0RF perphenazine 2 mg tablet 2 mg PO BID 30 Days Qty: 60 0RF oxybutynin chloride 10 mg tablet extended release 24hr 10 mg PO DAILY 30 Days Qty: 30 0RF carbidopa-levodopa 25-250 mg tablet 1 tab PO BID 30 Days Qty: 60 0RF lisinopril 20 mg tablet 20 mg PO DAILY 30 Days Qty: 30 0RF famotidine 40 mg tablet 40 mg PO BEDTIME 30 Days Qty: 30 0RF clonazepam 0.5 mg tablet 0.5 mg PO DAILY 14 Days Qty: 14 0RF aspirin 81 mg tablet,delayed release (DR/EC) 81 mg PO BEDTIME 30 Days Qty: 30 0RF ketorolac 0.5 % drops 1 drp ophthalmic (eye) TID 30 Days Qty: 5 0RF pantoprazole 40 mg tablet,delayed release (DR/EC) 40 mg PO DAILY@0630 30 Days Qty: 30 0RF buspirone 10 mg tablet 10 mg PO TID 30 Days Qty: 90 0RF zolpidem 10 mg tablet 10 mg PO BEDTIME PRN (Reason: Insomnia) 14 Days Qty: 14 0RF fluoxetine 20 mg capsule 60 mg PO DAILY 30 Days Qty: 90 0RF cholecalciferol (vitamin D3) [Vitamin D3] 50 mcg (2,000 unit) capsule 50 mcg PO DAILY 30 Days Qty: 30 0RF Incruse Ellipta 62.5 mcg/actuation blister with device 1 inh INHALATION DAILY 30 Days Qty: 30 0RF Arnuity Ellipta 100 mcg/actuation blister with device 1 inh INHALATION DAILY 30 Days Qty: 30 0RF Combivent Respimat 20-100 mcg/actuation mist 1 puff inhalation QID Qty: 1 0RF Discharge Orders: Discharge Order (Routine); Ordered 06/12/24 Ordered By: Zelalem Gurerero Diet: Advance to usual diet Activity on Discharge: As tolerated Stand Alone Forms: Patient Portal Discharge page Print Language: Tajik Care Plan Goals: Care plan goals achieved in this admission Health Concerns: Continue treatment with primary care physician and other outpatient providers. Plan of Treatment: Continue treatment with outpatient providers Dr. Hopkins at [facility]. Assessment: Middle-aged [place] female with a past history of major depressive disorder who lost her 3 years ago and was referred to the emergency room after she impulsively overdosed on Klonopin and Ambien in a suicidal gesture. She was assessed by crisis and transferring to this facility for psychiatric stabilization. The family is very involved and they want to take care of her and since she did not complained of active suicidal thoughts discharge planning was discussed.
== END 2024-06-12 13:03 | disposition home or self-care (01) | DRG 885 ==
LOC: HO.ED 06-09 07:02 → HO.PGERI 06-09 13:52
PROVIDERS: Emergency Medicine; Physician Assistant; Admitting Provider Psychiatry & Neurology Psychiatry; Emergency Provider Emergency Medicine Emergency Medical Services; PCP Family Medicine; Visit Provider Psychiatry & Neurology Psychiatry
DX: F33.3 Major depressive disorder, recurrent, severe with psychotic symptoms (principal); Z95.0 Presence of cardiac pacemaker; T42.6X2A Poisoning by other antiepileptic and sedative-hypnotic drugs, intentional self-harm, initial encounter; I10 Essential (primary) hypertension; T42.4X2A Poisoning by benzodiazepines, intentional self-harm, initial encounter; G20.A1 Parkinson's disease without dyskinesia, without mention of fluctuations; F02.80 Dementia in other diseases classified elsewhere, unspecified severity, without behavioral disturbance, psychotic disturbance, mood disturbance, and anxiety; G30.9 Alzheimer's disease, unspecified; Z63.4 Disappearance and death of family member; Z87.891 Personal history of nicotine dependence; Z79.82 Long term (current) use of aspirin; Z79.51 Long term (current) use of inhaled steroids; Z20.822 Contact with and (suspected) exposure to COVID-19; Z79.899 Other long term (current) drug therapy
CPT/HCPCS: 0241U; 36415; 70450; 71045; 71250; 80048; 80053; 80061; 80076; 80143; 80179; 80307; 81003; 82140; 82947; 83036; 83690; 83735; 84443; 84484; 85025; 85610; 87040; 93005; 99285; S9485

== ENCOUNTER → 2024-06-07 09:16 | Outpatient (BNV) | payer MEDICARE, SELFPAY | PROVIDERS: Emergency Provider Emergency Medicine; PCP Family Medicine; Visit Provider Internal Medicine Cardiovascular Disease | DX: R94.31 Abnormal electrocardiogram [ECG] [EKG] (principal) | CPT/HCPCS: 93010 ==

== ENCOUNTER → 2024-06-07 09:16 | Outpatient (BNV) | payer MEDICARE, SELFPAY | PROVIDERS: Emergency Provider Emergency Medicine; PCP Family Medicine; Visit Provider Radiology Diagnostic Radiology | DX: R41.82 Altered mental status, unspecified (principal) | CPT/HCPCS: 70450; 71045 ==

== ENCOUNTER → 2024-06-09 13:51 | Outpatient (BNV) | payer MEDICARE, SELFPAY | PROVIDERS: Admitting Provider Psychiatry & Neurology Psychiatry; Emergency Provider Emergency Medicine Emergency Medical Services; PCP Family Medicine; Visit Provider Psychiatry & Neurology Psychiatry | DX: F33.3 Major depressive disorder, recurrent, severe with psychotic symptoms (principal) | CPT/HCPCS: 90792; 99238 ==

== ENCOUNTER 2024-11-07 | Outpatient (REF) | payer MEDICARE, MEDICAID, SELFPAY ==
[2024-11-08 07:33] LABS: CT PCR NOT DETECTED (Not Detect.); NG PCR NOT DETECTED (Not Detect.)
[2024-11-15 10:48] LABS: HPV Genotype 16 Negative (Negative); HPV Genotype 18 Negative (Negative); HPV High Risk Negative (Negative)
== END 2024-11-07 00:01 | disposition home or self-care (01) ==
LOC: HO.HHCLNP
PROVIDERS: Visit Provider Family Medicine
DX: Z01.419 Encounter for gynecological examination (general) (routine) without abnormal findings (principal)
CPT/HCPCS: 87491; 87591; 87626; 88175

== ENCOUNTER 2024-11-14 14:42 | Outpatient (REF) | payer MEDICARE, MEDICAID, SELFPAY ==
--- OUTSIDE RECORDS SUMMARY | 2024-11-14 15:50 | XMS_ITS | Encounter Summary ---
Author Organization [employer] Address [address] [place] [address] Care Team Providers Care Aircraft Engine Mechanic Name Role Phone Carmen Leahy DO Primary Care Provider [phone] Encounter Details Date Type Department Care Team (Late st Contact Info) Description 09/14/2022 Orders Only [facility] MEDICINE [address] [place] [address] Gabrielle Valentin LPN Social History Tobacco Use Types Packs/Day Years Used Date Smoking Tobacco: Never Assessed Comments Unknown Sex and Gender Information Value Date Recorded Sex Assigned at Female 05/04/2022 10:16 AM EDT Legal Sex Female 10:16 AM EDT Gender Identity Female 05/04/2022 10:16 AM EDT Sexual Orientation Straight 05/04/2022 10 :16 AM EDT documented as of this encounter Plan of Treatment Not on file documented as of this encounter Visit Diagnoses Not on filedocumented in this encounter Care Teams Aircraft Engine Mechanic Relationship Specialty Start Date End Date Carmen Leahy DO [address] [place] [address] PCP - General Family Medicine 04/03/16 documented as of this encounter
--- OUTSIDE RECORDS SUMMARY | 2024-11-14 15:50 | XMS_ITS | Encounter Summary ---
Author Organization [employer] Address [address] [place] [address] Care Team Providers Care Assistant Athletic Trainer Name Role Phone Carmen Leahy DO Primary Care Provider [phone] Encounter Details Date Type Department Care Team (Late st Contact Info) Description 12/17/2022 Orders Only [facility] MED & PEDS [address] [place] [address] Carmen Dietz LPN Social History Tobacco Use Types Packs/Day Years Used Date Smoking Tobacco: Former Cigarettes Passive Smoke Exposure: Past Smokeless Tobacco: Never Alcohol Use Standard Drinks/Week Comments Never 0 (1 standard drink = 0.6 oz pur e alcohol) Depression Answer Date Recorded Patient Health Questionnaire-9 Score 15 09/28/2022 Depression Answer Date Recorded Patient Health Questionnaire-2 Score 6 09/28/2022 Comments Unknown Sex and Gender Information Value Date Recorded Sex Assigned at Female 05/04/2022 10:16 AM EDT Legal Sex Female 10:16 AM EDT Gender Identity Female 05/04/2022 10:16 AM EDT Sexual Orientation Straight 05/04/2022 10 :16 AM EDT documented as of this encounter Plan of Treatment Not on file documented as of this encounter Visit Diagnoses Not on filedocumented in this encounter Additional Health Concerns Assessment Noted Time PHQ-9 Depression Total Score: 15 09/28/ 023 10:29 AM EDT documented as of this encounter Care Teams Assistant Athletic Trainer Relationship Specialty Start Date End Date Carmen Leahy DO [address] [place] [address] PCP - General Family Medicine 04/03/16 documented as of this encounter
--- OUTSIDE RECORDS SUMMARY | 2024-11-14 15:50 | XMS_ITS | Clinical Summary ---
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 60 tablet 023 Active carbidopa-levodop a (Sinemet) 25-250 MG tabletIndications :Parkinsonism, unspecified Parkinsonism type (CMS/HCC) Take 1 tablet by mouth 2 times daily. 30 tablet 023 Active Proventil HFA 108 (90 Base) MCG/ACT inhaler INHALE 2 PUFFS EVERY 4 HOURS NEEDED FOR COUGH, SHORTNESS OF BREATH, OR FOR WHEEZING 023 Active busPIRone (Buspar) 10 MG tablet TAKE 1 TABLET BY MOUTH THREE TIMES DAILY IN THE MORNING, EVENING, AND BEDTIME 023 Active clonazePAM (KlonoPIN) 0.5 MG tablet Take 0.5 mg by mouth in the morning. 023 Active FLUoxetine (PROzac) 20 MG capsule TAKE 3 CAPSULES BY MOUTH EVERY DAY IN THE MORNING 023 Active Blood Glucose Monitoring Suppl (Performance Lab Verio) w/Device kit 1 each 2 times daily. Test blood sugar twice a day 1 kit 023 Active D3 Super Strength 50 MCG (2000 UT) capsule TAKE 1 CAPSULE BY MOUTH EVERY MORNING 90 capsule 3 024 Active pantoprazole (Protonix) 40 MG EC tablet Take 1 tablet (40 mg) by mouth before breakfast. Do not crush, chew, or split. 30 tablet 2024 Active famotidine (Pepcid) 40 MG tablet Take 1 tablet (40 mg) by mouth at bedtime. 30 tablet 2024 Active Combivent Respimat 20-100 MCG/ACT inhalerIndication s:Chronic obstructive pulmonary disease, unspecified COPD type ([facility]) INHALE 1 PUFF 4 TIMES A DAY, MAY TAKE ADDITIONAL PUFFS NEEDED. (MAX OF 6 PUFFS PER DAY) 4 g Active perphenazine 2 MG tablet Take 2 mg by mouth 2 times daily. Active Ozempic, 0.25 or 0.5 MG/DOSE, 2 MG/3ML solution pen-injector Inject 0.25 mg under the skin every 7 (seven) days. Active buPROPion XL (Wellbutrin XL) 150 MG 24 hr tablet Take 1 tablet by mouth Once per day. Active ketorolac (Acular) 0.5 % ophthalmic solution Instill 1 drop into affected eye three times a day starting 2 days prior to surgery continue as directed Active traZODone (Desyrel) 100 MG tablet Take 100 mg by mouth at bedtime. 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 RINSE MOUTH AFTER USING. 30 each Active Aspirin EC Adult Low Dose 81 MG EC tabletIndications :Other hyperlipidemia TAKE 1 TABLET BY MOUTH AT BEDTIME 90 tablet 3 Active oxybutynin XL (Ditropan-XL) 10 MG 24 hr tablet TAKE 1 TABLET BY MOUTH EVERY MORNING 30 tablet 1 025 Active atorvastatin (Lipitor) 80 MG tabletIndications :Other hyperlipidemia TAKE 1 TABLET BY MOUTH AT BEDTIME 90 tablet 3 025 Active lisinopril 20 MG tabletIndications :Essential hypertension TAKE 1 TABLET BY MOUTH EVERY MORNING 30 tablet 2 025 Active Incruse Ellipta 62.5 MCG/ACT aerosol powder INHALE 1 PUFF BY MOUTH EVERY DAY AT THE SAME TIME RINSE MOUTH AFTER USING RINSE MOUTH AFTER USING. 30 each 025 Active calcium carbonate (Tums) 500 MG chewable tablet Chew 2 tablets (1,000 mg) if needed in the morning, at noon, in the evening, and at bedtime for indigestion or heartburn. 60 tablet 3 024 2024 Umeclidinium [place] (Incruse Ellipta) 62.5 MCG/ACT aerosol powder Inhale 1 each Once per day. 30 each 024 2024 Discontinued lisinopril 20 MG tabletIndications :Essential hypertension TAKE 1 TABLET EVERY MORNING 30 tablet 2 025 2024 Discontinued Active Problems Problem Noted Date Diagnosed Date Healthcare maintenance 10/26/2023 Assessment & Plan (10/26/2023 10:02 AM EDT): -flu vaccine JUN 2023 -she declines COVID vaccine -encouraged RSV vaccine -s/p Tdap May 2014 -s/p pneumovax FEB 2018 -PCV20 today -s/p Shingrix JUL 2020 -Hep A immune -mammo BIRADS 04 OCT 2023 -referred for DEXA -pap wnl/HPV NEG SEP 2018 -colonoscopy with multiple hyperplastic polyps and hemorrhoids JUN 2017, she declines repeat colonoscopy, agrees to check cologuard -STI/HIV screen negative JUN 2017 Tremor 01/28/2023 Assessment & Plan (10/26/2023 10:00 AM EDT): Parkinsonian tremor per neurology, likely 2/2 psych meds -cont sinemet and benztropine BID -CT brain with moderate diffuse volume loss, mild chronic ichemic microangiopathy, no acute achanges JAN 2022 -f/u with neurology as scheduled Urinary incontinence 01/28/2023 Diastolic dysfunction 09/28/2022 BMI 34.0-34.9,adult 09/28/2022 Anxiety 09/28/2022 Chronic obstructive lung disease 09/25/2022 Assessment & Plan (10/26/2023 9:59 AM EDT): Controlled -PFTs with moderate COPD JUL 2016 -cont fluticasone daily -change spiriva to incruse daily -cont combivent/albuterol prn Chronic kidney disease 02/07/2018 Assessment & Plan (10/26/2023 9:53 AM EDT): -Cr/GFR nml SEP 2022 -cont lisinopril daily -avoid NSAIDs -optimal BS/BP control Type 2 diabetes mellitus 02/07/2018 Assessment & Plan (10/26/2023 9:51 AM EDT): A1c at goal -cont metformin BID -cont dietary changes -cont regular BS monitoring -cont aspirin, lipitor and lisinopril daily -s/p optho eval MAY [address] [facility], referred for f/u -foot exam next visit* Alzheimer's disease 12/03/2015 Assessment & Plan (10/26/2023 9:54 AM EDT): -CT brain with mild bifrontal atrophy DEC 2010 -TSH, RPR, B12, folate nml JUN 2017 -she declines f/u with neurology Obsessive-compulsive disorder 04/22/2015 Chronic gastroesophageal reflux disease 04/22/20 15 Obstructive sleep apnea 04/22/2015 Assessment & Plan (10/26/2023 9:59 AM EDT): s/p sleep study with no OVIDIO JUN 2022 -will continue to monitor for sx Essential hypertension 04/22/2015 Assessment & Plan (10/26/2023 9:52 AM EDT): BP controlled -cont lisinopril daily -Cr/GFR and urine microalbumin wnl SEP 2022 ->repeat prior to next visit as not yet done -there is screening EKG in chart -optho as above Major depression, recurrent, chronic 04/22/2015 Assessment & Plan (10/26/2023 9:53 AM EDT): -she denies any current SI/HI -she has the number for crisis and contracts for safety -cont current med regimen as per Dr. Sepulveda -f/u with therapist and psychiatrist as scheduled Sick sinus syndrome 04/22/2015 Assessment & Plan (10/26/2023 9:53 AM EDT): s/p PPM placement -cont routine PPM monitoring -f/u with cardiology as scheduled, due December 2023 Status post placement of cardiac pacemaker 04/22 Hyperlipidemia 04/22/2015 Assessment & Plan (10/26/2023 9:52 AM EDT): LDL at goal SEP 2022 -cont lipitor nightly -check lipids prior to next visit as not yet done Resolved Problems Problem Noted Date Diagnosed Date Resolved Date Asthma 09/28/2022 09/28/2022 Cardiac conduction disorder 09/28/2022 09/28/2022 Overview (09/28/2022): dual chamber [place] pacemaker implanted in 2006 Dysthymia 09/28/2022 09/28/2022 Syncope 02/16/2007 09/28/2022 Encounters Date Type Department Care Team Description 11/07/2024 9:45 AM EDT Procedure Visit [facility] [address], [place] [phone] Carmen Leahy DO Encounter for cervical Pap smear with pelvic exam (Primary Dx); Decreased hearing of right ear; Type 2 diabetes mellitus with stage 3 chronic kidney disease, without long-term current use of insulin, unspecified whether stage 3a or 3b CKD ([facility]/HCC); Encounter for screening for infections with a predominantly sexual mode of transmission 11/07/2024 Travel 10/31/[address] [facility] MED[facility] [address], [place] [phone] Carmen Leahy DO 10/27/[address] [facility] PEDS [address] [place], [place] [phone] Carmen Leahy DO Essential hypertension 09/28/[address] [facility] [address] [place] [address] Carmen Leahy, Other hyperlipidemia 09/23/[address] [facility] [address] [place], [place] [phone] Carmen Leahy, 09/12/[address] [facility] [address] [place] [address] Carmen Leahy, Other hyperlipidemia 09/01/[address] [facility] [address] [place] [address] Carmen Leahy, Med B form 08/31/[address] [facility] [address] [place] [address] Carmen Leahy, Recall Appt. 08/31/2024 Travel from Last 3 Months Immunizations Name Administration Dates Next Due Influenza injectable quadriv alent IIV4 with preservative 06/16/2017,04/03/2016,04/22/2015 Influenza injectable quadriv alent preservative free 06/09/2023,05/12/2022,04/10/2021,06/07,09/30/2018 Influenza, High Dose Seasona l, Preservative Free 05/08/2024 Influenza, IIV3, injectable 05/09/2014, 1 Influenza, Split (incl. lisbeth fied surface antigen) 06/15/2012 Pfizer Covid-19 Vaccine 12+ 05/08/2024, 2,11/26/2020 Pfizer Covid-19 Vaccine 12+ Bivalent 05/12/2022 Pfizer Covid-19 Vaccine 12+ marsha-sucrose (Light Cap) 01/09/2022 Pneumococcal Conjugate PCV 20 06/09/2023 Pneumococcal Polysaccharide PPSV23 02/07/2018, TD (adult), 2 Lf tetanus tox oid, preservative free, adsorbed 09/13/2006 Tdap 05/08/2024,05/09/2014 Zoster, Recombinant 07/09/2020,02/14/2020 Social History Tobacco Use Types Packs/Day Years Used Date Smoking Tobacco: Former Cigarettes Passive Smoke Exposure: Past Smokeless Tobacco: Never Tobacco Cessation:Counseling Given: Not Answered Alcohol Use Standard Drinks/Week Comments Never 0 (1 standard drink = 0.6 oz pur e alcohol) Depression Answer Date Recorded Patient Health Questionnaire-9 Score 15 06/09/2023 Patient Health Questionnaire-9 Score 15 06/09/2023 Last PHQ-9: Questionnaire Data Not on file 1 08/10/2022 Housing Stability Answer Date Recorded What is your housing situation today? I have clarisa wilder 04/04/[address] you li ve. Do you have problems with any of the following? None of the above 04/04/2024 Food Insecurity Answer Date Recorded Within the past 12 months, y ou worried that your food would run out before you got money to buy more: Never True 04/04/2024 Within the past 12 months,th e food you bought just didn't last and you didn't have enough money to get more: Never True 07/2023 Transportation Answer Date Recorded In the past 12 months, has l ack of transportation kept you from medical appts, meetings, work or from getting things needed for daily living? Yes, it has kept me from medical appointments or getting medications. 04/04/2024 Utilities Answer Date Recorded In the past 12 months, has t he electric, gas, oil or water company threatened to shut off services in your home? No 04/04/2024 Depression Answer Date Recorded Patient Health Questionnaire-2 Score 3 06/09/2023 Internet Access Answer Date Recorded Internet Access Q1 Yes 04/04/2024 Internet Access Q2 Not on file 04/04/2024 Comments Unknown Sex and Gender Information Value Date Recorded Sex Assigned at Female 05/04/2022 10:16 AM EDT Legal Sex Female 10:16 AM EDT Gender Identity Female 05/04/2022 10:16 AM EDT Sexual Orientation Straight 05/04/2022 10 :16 AM EDT Last Filed Vital Signs Vital Sign Reading Time Taken Comments Blood Pressure 118/78 11/07/2024 9:54 AM EDT Pulse 78 11/07/2024 9:54 AM EDT Temperature 37.1 ??C (98.8 ??F) 11/07/2024 9:54 AM ED T Respiratory Rate 18 11/07/2024 9:54 AM EDT Oxygen Saturation 97% 07/19/2024 11:34 AM EST Inhaled Oxygen Concentration - - Weight 75.6 kg (166 lb 9.6 oz) 11/07/2024 9:54 A M EDT Height 160 cm (5' 3 ) 11/07/2024 9:54 AM EDT Body Mass Index 29.51 11/07/2024 9:54 AM EDT Plan of Treatment Health Maintenance Due Date Last Done Comments CT Colonography 1960 FIT DNA/Cologuard 1960 FIT 1960 FOBT 1960 Sigmoidoscopy 1960 Diabetes: Foot Exam 02/11/1968 Alcohol/Substance Use Screening 1970 Hepatitis C Screening 02/11/1976 RSV Patients and Patients Aged 60 years or older (1 - Risk 60-74 years 1-dose series) 2018 Colonoscopy 06/21/2020 06/21/2017 Colorectal Cancer Screening 06/21/2020 Depression Screening 06/09/2024 06/09/2023, 06/09/20 23 Lipid Panel 10/25/2024 10/26/2023, 09/03, 04/10/2021, Additional history exists SDOH Screening 04/04/2025 04/04/2024 Diabetes: Hemoglobin A1C 05/10/2025 025, 04/25/2024, 10/26/2023, Additional history exists Tobacco Screening 07/19/2025 07/19/2024 Mammogram 10/05/2025 10/06/2023, 09/03, 09/30/2022, Additional history exists Eye Exam 01/20/2026 01/21/2024, 0703/2024, 01/21/2024, Additional history exists DTaP/Tdap/Td Vaccines (3 - Td or Tdap) 05/08/2034 05/08/2024, 05/09/2014, 09/13/2006 HPV/Cotest Discontinued 09/30/2018 Zoster Vaccines Completed 07/09/2020, 02/14/2020 Pneumococcal Vaccine: 50+ Years Completed 06/09/2023, 02/07/2018, 03/07/2007 COVID-19 Vaccine Completed 05/08/2024, 02/2022, 01/09/2022, Additional history exists Influenza Vaccine Completed 05/08/2024, , 05/12/2022, Additional history exists Cervical Cancer Screening Discontinued Pap Smear Discontinued 11/07/2024 HIB Vaccines Aged Out No longer eligi ble based on patient's age to complete this topic HPV Vaccines Aged Out No longer eligi ble based on patient's age to complete this topic Hepatitis A Vaccines Aged Out No long er eligible based on patient's age to complete this topic Hepatitis B Vaccines Aged Out No long er eligible based on patient's age to complete this topic IPV Vaccines Aged Out No longer eligi ble based on patient's age to complete this topic Meningococcal Vaccine Aged Out No ynes ham[place] eligible based on patient's age to complete this topic RSV under 20 months Aged Out No longe r eligible based on patient's age to complete this topic Rotavirus Vaccines Aged Out No longer eligible based on patient's age to complete this topic Procedures Procedure Name Priority Date/Time Associated Diagnosis Comments CHLAMYDIA/N. GONORRHOEAE RNA, TMA, UROGENITAL Routine 11/07/2024 5:46 PM EDT Encounter for cervical Pap smear with pelvic exam Encounter for screening for infections with a predominantly sexual mode of transmission POCT GLUCOSE Routine 11/07/2024 9:58 AM EDT Type 2 diabetes mellitus with stage 3 chronic kidney disease, without long-term current use of insulin, unspecified whether stage 3a or 3b CKD (CMS/HCC) POCT GLYCOSYLATED HEMOGLOBIN (HGB A1C) Routine 11/07/2024 9:56 AM EDT Type 2 diabetes mellitus with stage 3 chronic kidney disease, without long-term current use of insulin, unspecified whether stage 3a or 3b CKD (CMS/HCC) PAP SMEAR Routine 11/07/2024 12:00 AM EDT Encounter for cervical Pap smear with pelvic exam LIPID PANEL, STANDARD Routine 10/26/2023 10:05 AM EDT Type 2 diabetes mellitus with stage 3 chronic kidney disease, without long-term current use of insulin, unspecified whether stage 3a or 3b CKD (CMS/HCC) BI MAMMOGRAM SCREENING TOMOSYNTHESIS BILATERAL Routine 10/06/2023 9:34 AM EDT ZZZ HISTORICAL HPV E6/E7 RFLX ED 16 18/45 Routine 09/30/2018 11:35 AM EDT HM COLONOSCOPY Routine 06/21/2017 2:48 PM EST from Last 3 Months or Most Recently Relevant to Health Maintenance Results * Chlamydia/N. Gonorrhoeae RNA, TMA, Urogenitial (11/07/2024 5:46 PM EDT) CT PCR NOT DETECTED Not Detect. [facility] Comment:A not detected test result does not exclude the possibilityof infection because test results can be affected byimproper specimen collection, concurrent antibiotic therapy,or the number of organisms in the specimen which may bebelow the sensitivity of the test. As with many diagnostictests, results from the Xpert CT/NG assay should beinterpreted in conjunction with other laboratory andclinical data available to the clinician.Xpert CT/NG performance has not been evaluated in patientsless than 14 years of age. The assay should not be used forthe evaluationof suspected sexual abuse or for other medico-legalindications. Additional testing is recommended in anycircumstance when false positive or false negative resultscould lead to adverse medical, social or psychologicalconsequences. NG PCR NOT DETECTED Not Detect. [facility] Comment:A not detected test result does not exclude the possibilityof infection because test results can be affected byimproper specimen collection, concurrent antibiotic therapy,or the number of organisms in the specimen which may bebelow the sensitivity of the test. As with many diagnostictests, results from the Xpert CT/NG assay should beinterpreted in conjunction with other laboratory andclinical data available to the clinician.Xpert CT/NG performance has not been evaluated in patientsless than 14 years of age. The assay should not be used forthe evaluationof suspected sexual abuse or for other medico-legalindications. Additional testing is recommended in anycircumstance when false positive or false negative resultscould lead to adverse medical, social or psychologicalconsequences. Swab Cervical swab / Unknown 11/07/2024 5:46 PM EDT 11/08/2024 9:51 AM EDT Narrative [facility] - 11/08/2024 9:51 AM EDT Vaginal Carmen Leahy DO LAB MICROBIOLOGY - GENERAL O RDERABLES Final Result [facility] [address] [place] [phone] * POCT glucose manually resulted (11/07/2024 9:58 AM EDT) Glucose Blood, POC 156 60 - 200 mg/dL QC Media Lot # [id number] Lot# Expiration Date Blood Capillary blood specimen / Unknown 11/07/2024 9:58 AM EDT Carmen Armond DO POINT OF CARE TEST ENTER/MARTHA T ORDERABLES Final Result * POCT glycosylated hemoglobin (Hgb A1c) (11/07/2024 9:56 AM EDT) Hemoglobin A1C 5.5 4.0 - 6.0 % QC Media Lot # [id number] Lot# Expiration Date Blood Capillary blood specimen / Unknown 11/07/2024 9:56 AM EDT Carmen Armond DO POINT OF CARE TEST ENTER/MARTHA T ORDERABLES Final Result * Pap Smear (11/07/2024 12:00 AM EDT) Swab Cervix uteri structure / Unknown 11/07/2024 11/08/2024 6:00 AM EDT Narrative [facility] - 11/10/2024 12:37 PM EDT ----- ------- Name: Saba Gibson ?Age/Sex: 64/F ? : 1960 Unit#: [id number] ?? Attend Dr: Carmen Leahy DO ?Re11/07/24 ?Status: DEP REF ? Location: HO.HHCLNP ? Disch: ? ----- ------- SPEC : [id number] ? RECD: 11/08/24 ? STATUS: ??SOUT ? REQ NUM: [id number] ? ROCKY: 11/07/24-0000 ? SUBM DR: Carmen Leahy DO ? ENTERED: ??11/08/24 ?SP TYPE: Pap Smr ?OTHR : ? ORDERED: ??Pap Smear ? Interpretation ?? Satisfactory for evaluation. ?? Negative for intraepithelial lesion or malignancy. ?? No endocervical cells seen. ? HPV High Risk: ??Negative ? HPV Genotyping 16: ??Negative ?? HPV Genotyping 18: ??Negative ?Clinical Information LMP:Unknown date Previous PAP test:2019 ? Material Received ?? ThinPrep-Cervical ----- ------- Signed (signature on file) MARVA Torres (ASCP) 11/10/24 1237 ? ----- ------- ? END OF REPORT ? us Carmen Leahy DO LAB CYTOLOGY ORDERABLES Karime cardona Result [facility] [address] [place] [address] [phone] * (ABNORMAL) Lipid Panel, Standard (10/26/2023 10:05 AM EDT) Triglycerides 233(H) <150 mg/dL [facility] Comment:Desirable Triglyceri de: less than 150 mg/dLBorderline High Triglyceride 150-199 mg/dLHigh Triglyceride: 200-499 mg/dLVery High Triglyceride: greater than or equal to 5OO mg/dL Cholesterol 136 <200 mg/dL [facility] Comment:Desirable Cholestero l: less than 200 mg/dLBorderline High Cholesterol: 200-239 mg/dLHigh Cholesterol: greater than 239 mg/dL LDL Cholesterol Calculated 54 <100 mg/dL [facility] Comment:Desirable LDL: less than 100 mg/dLNear Optimal/Above Optimal LDL: 110- 129 mg/dLBorderline High LDL: 130-159 mg/dLHigh LDL: 160-189 mg/dLVery High LDL: greater than or equal to 190 mg/dL HDL Cholesterol 36(L) >40 mg/dL [facility] Comment:Desirable HDL: great er than 40 mg/dL Note: This HDL assay may give artificially low results in patients with liver disease. Blood Venous blood specimen / Unknown 10/26/2023 10:05 AM EDT 10/26/2023 11:24 AM EDT Carmen Leahy DO LAB BLOOD ORDERABLES Final R esult [facility] [address] [place] [phone] * BI Mammogram Screening Tomosynthesis Bilateral (10/06/2023 9:34 AM EDT) Anatomical Region Laterality Modality Breast Bilateral Mammography 10/06/2023 9:34 AM EDT Narrative 10/18/2023 4:32 AM EDT ? [facility] [place] ? [address] ?[place] [address] ? Mammography Report ? Signed ? Patient: Ingles,Saba ?MR#: [id number] ? : 1960 ?Acct:[id number] ? Age/Sex: 63 / F ?ADM Date: 04/03/24 ? Loc: HO.MAMMO ? Attending Dr: Carmen Leahy DO ? Ordering Physician: Carmen Leahy DO ?Results: 1N ?? egative ? Date of Service: 10/06/23 ?Follow Up: 1 Year From Orig ?? inal Mammogram ? Procedure(s): MM tomosynthesis screening BI ?? Accession Number(s): [id number] ? cc: Carmen Leahy DO ? EXAMINATION: ?? MM SCREENING DIGITAL BREAST TOMOSYNTHESIS, BILATERAL ? CLINICAL INFORMATION: ? Screening. Asymptomatic. ? COMPARISON: ?? Mammography: This study is compared with prior exams dating back to ?? 2017. ? TECHNIQUE: ?? Digital breast tomosynthesis is performed in both the craniocaudal and ?? mediolateral oblique views along with computer-aided detection (CAD). ?? Synthesized 2D images are generated from the tomosynthesis. ? FINDINGS: ?? There are scattered areas of fibroglandular density (ACR BI-RADS breast ?? composition Category b). ? There are no significant masses, abnormal calcifications, or other ?? abnormalities. ? There is a pacemaker battery in the superior aspect of the left breast. ? MM/MM tomosynthesis screening BI ?? IMPRESSION: ?? No mammographic evidence of malignancy. ? ASSESSMENT: ? BI-RADS BI-RADS 1 - Negative ? RECOMMENDATION: ?? Routine annual mammography screening. ? 1 year F/U ? This examination should not preclude the clinical evaluation of a ?? suspicious palpable abnormality. ? This patient's information was entered into a reminder system with a ?? target due date for their next mammogram. ? Dictated By: ?Silvia Salter MD ? Signed By: ?<Electronically signed by Silvia Salter MD in OV> ? 10/18/23 0429 ? DD/ 0934 ? TD/TT: ? Relief Worker: ? Procedure Note Donluter, Image - 10/18/2023 [facility] [address] [place] [address] Mammography Report Signed Patient: Kobe Gibson#: [id number] : 8Acct:[id number] Age/Sex: 63 / FADM Date: 10/06/23 Loc: HO.MAMMO Attending Dr: Carmen Leahy DO Ordering Physician: Carmen Leahyults: 1N egative Date of Service: 10/06/23Follow Up: 1 Year From Orig inal Mammogram Procedure(s): MM tomosynthesis screening BI Accession Number(s): [id number] cc: Carmen Leahy DO EXAMINATION: MM SCREENING DIGITAL BREAST TOMOSYNTHESIS, BILATERAL CLINICAL INFORMATION: Screening. Asymptomatic. COMPARISON: Mammography: This study is compared with prior exams dating back to 2017. TECHNIQUE: Digital breast tomosynthesis is performed in both the craniocaudal and mediolateral oblique views along with computer-aided detection (CAD). Synthesized 2D images are generated from the tomosynthesis. FINDINGS: There are scattered areas of fibroglandular density (ACR BI-RADS breast composition Category b). There are no significant masses, abnormal calcifications, or other abnormalities. There is a pacemaker battery in the superior aspect of the left breast. MM/MM tomosynthesis screening BI IMPRESSION: No mammographic evidence of malignancy. ASSESSMENT: BI-RADS BI-RADS 1 - Negative RECOMMENDATION: Routine annual mammography screening. 1 year F/U This examination should not preclude the clinical evaluation of a suspicious palpable abnormality. This patient's information was entered into a reminder system with a target due date for their next mammogram. Dictated By: Silvia Salter MD Signed By: <Electronically signed by Silvia Salter MD in OV> 10/18/23 0429 DD/ 0934 TD/TT: Relief Worker: Carmen Armond DO IMG BI PROCEDURES Final Resu lt * HPV E6/E7 RFLX ED 16 18/45 (09/30/2018 11:35 AM EDT) ADDITIONAL TESTING Not indicated () [facility] Comment: Test Performed by [employer], Nativis Moore, [address] [place] [address] Sanya Kasper M.D., Ph.D., Director of Laboratories , [place] [id number] HPV 16 RNA Test not performed [facility] HPV 18/45 RNA Test not performed [facility] HPV mRNA E6/E7 Not Detected NOT DETECTED [facility] Comment: This test was performed using the APTIMA(R) HPV Assay ([employer] This assay detects E6/E7 viral messenger RNA (mRNA) from 14 high-risk HPV types (16,18,31,33,35,39,45,51, 52,56,58,59,66,68). For additional information please refer to: http://education.[employer]/faq/FFS368k1 (This link is being provided for informational/ educational purposes only.) The analytical performance characteristics of this assay have been determined by [facility] [place], [place]. The modifications have not been cleared or approved by the FDA. This assay has been validated pursuant to the CLIA regulations and is used for clinical purposes. Please note: ??Effective 03/16/2016, HPV testing will be performed using [employer]'s APTIMA test which targets mRNA. Detecting mRNA instead of DNA, as in older methods, offers significant improvements in specificity. 09/30/2018 11:3 5 AM EDT us Carmen Leahy DO HISTORICAL/NON ORDERABLE LAB S Final Result [facility] [address] [place] [address], * Hm Colonoscopy (06/21/2017 2:48 PM EST) us Historical Provider HEALTH MAINTENANCE Final Result from Last 3 Months or Most Recently Relevant to Health Maintenance Insurance [facility] Care Teams Swing Saw Operator Relationship Specialty Start Date End Date Carmen Leahy DO [address] [place] [id number] PCP - General Family Medicine 04/03/16
--- OUTSIDE RECORDS SUMMARY | 2024-11-14 15:50 | XMS_ITS | Encounter Summary ---
Author Organization [employer] Address [address] [facility] [address] [place] [address] Care Team Providers Care Machinist Job Setter Name Role Phone Armond Carmen Primary Care Provider + [phone] Encounter Details Date Type Department Care Team (Late st Contact Info) Description 10/13/[address] [facility] MED[facility] [address] [place] [address] Provider, MD Nakia Social History Tobacco Use Types Packs/Day Years [...] housing situation today? I have clarisa wilder 04/20/[address] you li ve. Do you have problems with any of the following? None of the above 04/20/2023 Food Insecurity Answer Date Recorded Within the past 12 months, y ou worried that your food would run out before you got money to buy more: Never True 04/20/2023 Within the past 12 months,th e food you bought just didn't last and you didn't have enough money to get more: Never True Transportation Answer Date Recorded In the past 12 months, has l ack of transportation kept you from medical appts, meetings, work or from getting things needed for daily living? No 04/20/2023 Utilities Answer Date Recorded In the past 12 months, has t he electric, gas, oil or water company threatened to shut off services in your home? No 04/20/2023 Depression Answer Date Recorded Patient Health Questionnaire-2 Score 3 06/09/2023 Comments Unknown Sex and Gender Information Value Date Recorded Sex Assigned at Female 05/04/2022 10:16 AM EDT Legal Sex Female 10:16 AM EDT Gender Identity Female 05/04/2022 10:16 AM EDT Sexual Orientation Straight 05/04/2022 10 :16 AM EDT documented as of this encounter Plan of Treatment Not on file documented as of this encounter Procedures Procedure Name Priority Date/Time Associated Diagnosis Comments HM COLONOSCOPY Routine 06/21/2017 2:48 PM EST documented in this encounter Results * Hm Colonoscopy (06/21/2017 2:48 PM EST) Historical Provider HEALTH MAINTENANCE Final Result documented in this encounter Visit Diagnoses Not on filedocumented in this encounter Additional Health Concerns Assessment Noted Time PHQ-9 Depression Total Score: 15 023 9:18 AM EST documented as of this encounter Care Teams Machinist Job Setter Relationship Specialty Start Date End Date Carmen Leahy DO [address] [place] [address] PCP - General Family Medicine 04/03/16 documented as of this encounter
--- OUTSIDE RECORDS SUMMARY | 2024-11-14 15:50 | XMS_ITS | Encounter Summary ---
Author Organization [employer] Address [address] [facility] 7t [place] [address] Care Team Providers Care Waist Fitter Name Role Phone Carmen Leahy DO Primary Care Provider [phone] Encounter Details Date Type Department Care Team (Late st Contact Info) Description 07/22/2022 Orders Only [facility] [address] [place] [address] Carmen Dietz LPN Social History Tobacco Use [...] on filedocumented in this encounter Care Teams Waist Fitter Relationship Specialty Start Date End Date Carmen Leahy DO [address] [place] [phone] PCP - General Family Medicine 04/03/16 documented as of this encounter
--- OUTSIDE RECORDS SUMMARY | 2024-11-14 15:50 | XMS_ITS | Encounter Summary ---
Author Organization [employer] Address [address] [facility] [address] [place] [address] Care Team Providers Care Induction Machine Operator Name Role Phone Carmen Leahy DO Primary Care Provider [phone] Reason for Visit * Reason Comments Med Refill Encounter Details Date Type Department Care Team ([facility] st Contact Info) Description 09/08/2022 Refill [facility] MED[facility]INE [address] [place], [place] [phone] Carmen Leahy DO [address] [place] [address] Parkinsonism, unspecified Parkinsonism type (CMS/HCC) Social History Tobacco Use Types Packs/Day Years [...] documented as of this encounter Visit Diagnoses Diagnosis Parkinsonism, unspecified Parkinsonism type (CMS/HCC) documented in this encounter Care Teams Induction Machine Operator Relationship Specialty Start Date End Date Carmen Leahy DO [address] [place], [place] [id number] PCP - General Family Medicine 04/03/16 documented as of this encounter
--- OUTSIDE RECORDS SUMMARY | 2024-11-14 15:50 | XMS_ITS | Encounter Summary ---
Author Organization [employer] Address [address] [facility] [address] [place] [address] Care Team Providers Care Assistant City Attorney Name Role Phone Carmen Leahy DO Primary Care Provider + [phone] Encounter Details Date Type Department Care Team (Late st Contact Info) Description 01/18/2023 Orders Only [facility] MEDICINE [address] [place] [address] Gabrielle Valentin LPN Social History Tobacco Use [...] as of this encounter Care Teams Assistant City Attorney Relationship Specialty Start Date End Date Carmen Leahy DO [address] [place] [address] PCP - General Family Medicine 04/03/16 documented as of this encounter
== END 2024-11-14 14:43 | disposition home or self-care (01) ==
LOC: HO.MAMMO 14:42
PROVIDERS: PCP Family Medicine; Visit Provider Family Medicine
DX: Z12.31 Encounter for screening mammogram for malignant neoplasm of breast (principal)
CPT/HCPCS: 77063; 77067

== ENCOUNTER → 2024-11-14 15:30 | Outpatient (BNV) | payer MEDICARE, MEDICAID, SELFPAY | PROVIDERS: PCP Family Medicine; Visit Provider Internal Medicine | DX: Z12.31 Encounter for screening mammogram for malignant neoplasm of breast (principal) | CPT/HCPCS: 77063; 77067 ==

== ENCOUNTER 2025-02-13 11:44 | Outpatient (AMB) | payer MEDICARE, MEDICAID, SELFPAY ==
--- NOTE | 2025-02-13 11:47 | MHC.OFFVIS ---
Intake Visit Reasons: 6 month follow up Allergies No Known Allergies (No Known Allergies*) Allergy (Verified 06/07/24 09:32) HPI Comments Details: 65 yo woman with COPD, sp cardiac pacemaker for sick sinus syndrome, MDD taking neuroleptics and SSRIs for years and parkinsonism. She was more down lately and staying in her room. Otherwise, no pscyhotic symptoms. [facility] Medical History (Updated 02/13/25 @ 11:49 by Valencia Wren MD) Obesity COPD (chronic obstructive pulmonary disease) GERD (gastroesophageal reflux disease) Depression Parkinsonian tremor Parkinsonism MDD (major depressive disorder), recurrent, severe, with psychosis Pacemaker Dementia HTN (hypertension) Anxiety Social History Household Members: Children Housing: House Do you presently have visiting nurse or other home services: Yes (Dtr is [employer] OPERATOR) Alcohol intake: never Patient Tobacco Use Status: Former Tobacco user Tobacco use type: Cigarette Second Hand Smoke Exposure: No service: No Sexual orientation: Straight/Heterosexual Review of Systems Const Details: Mood is down. Physical Exam Neuro Other: Mental Status: Alert and oriented to person, place, and time. Normal attention. Normal spontaneous speech, fluency, and comprehension. No obvious issues with mood and memory. Affect is appropriate. Cranial Nerves: CN II: Visual glez full to confrontation, visual acuity intact. CN III, IV, : Pupils equal, round, reactive to light and accommodation. Extraocular movements are normal. CN V: Facial sensation is normal. CN VII: Facial movements symmetrical. CN VIII: Hearing intact to bedside conversation is normal. CN IX, X: Palate elevates symmetrically. CN XI: Shoulder shrug and head turn symmetrical. CN XII: Tongue midline without atrophy or fasciculations. Extrapyramidal: Full facial expressions and blinking. No rigidity. Movements are appropriate with no tremor or abnormality. Speech: Normal; no dysarthria or tremor. Assessment & Plan Assessment & Plan (1) Parkinsonism: Comment: CT brain at [facility] in 2010: mild bifrontal atrophy. Code(s): G20.C - Parkinsonism, unspecified Category: Medical Qualifiers: Parkinsonism type: secondary Parkinsonism Secondary Parkinsonism type: neuroleptic-induced Qualified Code(s): G21.11 - Neuroleptic induced parkinsonism; T43.505A - Adverse effect of unspecified antipsychotics and neuroleptics, initial encounter Plan Impression: Secondary parkinsonism Rec: a: Carbidopa/levodopa 25/100 am and noontime b: Benztropine 0.5mg twice a day Medications: Changed From benztropine 0.5 mg PO BID 30 days 60 tabs 0RF To benztropine 0.5 mg PO BID 180 tabs 1RF Refilled carbidopa-levodopa 25-250 mg 1 tab PO BID 180 tabs 1RF 90 days Coding Level of Care Code Tele Est Pt Level 4 (15043) Diagnoses Neuroleptic-induced parkinsonism G21.11; T43.505A Parkinsonism type: secondary Parkinsonism Secondary Parkinsonism type: neuroleptic-induced
--- OUTSIDE RECORDS SUMMARY | 2025-02-13 12:45 | XMS_ITS | Encounter Summary ---
Author Organization [employer] Address [address] [facility] [address] [place] [address] Care Team Providers Care Power Plant Technician Name Role Phone Carmen Leahy DO Primary Care Provider + [phone] Encounter Details Date Type Department Care Team ([facility] st Contact Info) Description 10/13/2023 Orders Only [facility] MEDICINE [address] [place] [address] Provider, MD Nakia Social History Tobacco Use [...] as of this encounter Plan of Treatment Upcoming Encounters Date Type Department Care Team (Late st Contact Info) Description 06/25/2025 10:00 AM EST Office Visit [facility] OPTOMETRY [address] [place], [place] [phone] Pilar Marshall, OD [address] [place] [address] documented as of this encounter Procedures Procedure Name Priority Date/Time Associated Diagnosis Comments HM COLONOSCOPY Routine 06/21/2017 2:48 PM EST documented in this encounter Results * Hm Colonoscopy (06/21/2017 2:48 PM EST) us Historical Provider HEALTH MAINTENANCE Final Result documented in this encounter Visit Diagnoses Not on filedocumented in this encounter Additional Health Concerns Assessment Noted Time PHQ-9 Depression Total Score: 15 023 9:18 AM EST documented as of this encounter Care Teams Power Plant Technician Relationship Specialty Start Date End Date Carmen Leahy DO [address] [place] [address] PCP - General Family Medicine 04/03/16 documented as of this encounter
--- OUTSIDE RECORDS SUMMARY | 2025-02-13 12:45 | XMS_ITS | Clinical Summary ---
Author Organization [employer] [facility] Address [address] [facility] [address] [place] [address] Phone Care Team Providers Care Steel Rigger Name Role Phone Unavailable Primary Care Provider Unavailabl e Social History Tobacco Use Types Packs/Day Years Used Date Smoking Tobacco: Never Assessed Education Answer Date Recorded Are you interested in more education? Not on avelina e 10/30/2022 Are you concerned about learning? Not on file 10/30/2022 No 10/30/2022 No 10/30/2022 Digital Access Answer Date Recorded No 12/01/2022 No 12/01/2022 Reliable internet access at home? Not on file 12/01/2022 Device with a working camera? Not on file Comments Unknown Sex and Gender Information Value Date Recorded Sex Assigned at Not on file Legal Sex Female 3:39 PM EST Gender Identity Not on file Sexual Orientation Not on file Plan of Treatment Not on file Medical Devices Not on file Insurance [facility] C3 ACO Additional Source Comments The information contained in this document represents components of the legal health record. It is not the complete legal health record.[facility]
== END 2025-02-13 11:58 | disposition home or self-care (01) ==
LOC: HO.HSM 11:44
PROVIDERS: PCP Family Medicine; Referring Provider Family Medicine; Visit Provider Psychiatry & Neurology Neurology
DX: G21.11 Neuroleptic induced parkinsonism (principal); T43.505A Adverse effect of unspecified antipsychotics and neuroleptics, initial encounter
CPT/HCPCS: 99214

== ENCOUNTER → 2025-02-13 11:44 | Outpatient (BNVA) | payer MEDICARE, MEDICAID, SELFPAY | PROVIDERS: PCP Family Medicine; Referring Provider Family Medicine; Visit Provider Psychiatry & Neurology Neurology | DX: G21.11 Neuroleptic induced parkinsonism (principal); T43.505A Adverse effect of unspecified antipsychotics and neuroleptics, initial encounter | CPT/HCPCS: 99212 ==